=== PATIENT | male | born 1965 | race Caucasian/White ===

== ENCOUNTER 2017-01-27 05:58 | Observation (INO) | payer BC ==
[2016-12-09 09:05] VITALS: BMI 31.0
--- NOTE | 2016-12-09 09:46 | PAT Medication Instructions ---
Service Date Dec 09, 2016. Current Home Medication List Aspirin (Aspirin), 325 MG PO TID PRN for Pain Multivitamin (Multivitamin), 1 TAB PO BID Medication Instructions For Your Scheduled Surgery Aspirin (Aspirin), 325 MG PO TID PRN for Pain (patient will check with surgeon for instructions) - Hold the following medications the morning of surgery: Multivitamin (Multivitamin), 1 TAB PO BID - Take the following medications as scheduled the night before surgery: Multivitamin (Multivitamin), 1 TAB PO BID If you have any questions please call us at [phone] or [phone] ( Kayla) or [phone]
--- NOTE | 2016-12-09 10:40 | DIAGNOSTIC IMAGING REPORT ---
CHEST PREADMISSION(PA/LAT) HISTORY: Preop. COMPARISON: Chest 01/04/2012. FINDINGS: The lungs are clear. Cardiac silhouette is normal in size. No pleural effusions. No pneumothorax. Mild S-shaped scoliosis of the thoracic spine. IMPRESSION: No acute process. Electronically signed by: Mauro Genao M.D. 12/09/2016 10:38 AM Dictated Date/Time: 12/09/2016 10:35 AM
[2016-12-09 10:49] LABS: BASO % 0.6 %; BASO ABS # 0.04 K/uL (0-0.2); COMPLETE YES; EOS % 2.5 %; HEMATOCRIT 45.6 % (42-52); IG% 0.1 %; LYMPH % 27.1 %; LYMPH ABS # 1.85 K/uL (1.2-3.4); MEAN CELL VOLUME 85.4 fL (80-100); MEAN CORPUSCULAR HEMOGLOBIN 29.6 pg (25-34); MEAN CORPUSCULAR HGB CONC 34.6 g/dl (32-36); MEAN PLATELET VOLUME 8.9 fL (7.4-10.4); NEUT % 59.7 %; PLATELET COUNT 328 K/uL (130-400); RED BLOOD COUNT 5.34 M/uL (4.7-6.1); WHITE BLOOD COUNT 6.82 K/uL (4.8-10.8)
[2016-12-09 10:51] LABS: URINE APPEARANCE CLEAR (CLEAR); URINE BILIRUBIN NEG (NEG); URINE COLOR YELLOW; URINE NITRITE NEG (NEG); URINE SPECIFIC GRAVITY 1.012 (1.000-1.030); UROBILINOGEN NEG (NEG)
[2016-12-09 11:02] LABS: MANUAL MICROSCOPIC REQUIRED? NO; REVIEW REQ? NO
[2016-12-09 11:32] LABS: CREATININE 0.96 mg/dl (0.60-1.40)
[2016-12-09 11:33] LABS: CALCIUM 8.7 mg/dl (8.5-10.1); POTASSIUM 4.2 mmol/L (3.5-5.1)
[~2017-01-27] VITALS: Ht 185.4 cm; Wt 107.6 kg
[2017-01-27] VITALS (15 sets, daily range): BP systolic 131–159; BP diastolic 83–102; PULSE 16–107; TEMP 36.5–37.1; O2SAT 92–99; Ht 185.4 cm; Wt 107.6 kg
[~2017-01-27 05:58] MED LIST: ASPI325T45 PO; MULT-506 PO
[2017-01-27] MEDS ORDERED: CEFAZOLIN 2000 MG/60 ML D5W 60 ML IV SCH (06:00)
[2017-01-27] MEDS ORDERED: SCOPOLAMINE 1.5 MG TDSY TD SCH (06:00)
[2017-01-27] MEDS ORDERED: LACTATED RINGER'S 1000ML 1,000 ML IV SCH (06:00)
[2017-01-27] MEDS ORDERED: FENTANYL CITRATE INJ 50 MCG/1 ML 2 ML VIAL IV PRN (06:30)
[2017-01-27] MEDS ORDERED: ONDANSETRON INJ 2 MG/ML 2 ML VIAL IV PRN ×2 (06:30→09:00)
[2017-01-27] MEDS ORDERED: ATROPINE SULFATE 0.1 MG/ML 5ML SYR IV PRN (06:30)
[2017-01-27] MEDS ORDERED: EpHEDrine SULFATE INJ 50 MG/ML AMP IV PRN (06:30)
[2017-01-27] MEDS ORDERED: MIDAZOLAM HCL 1 MG/ML 2ML VIAL ONE (06:36)
[2017-01-27] MEDS ORDERED: FENTANYL CITRATE INJ 50 MCG/1 ML 2 ML VIAL ONE ×2 (06:36→07:56)
[2017-01-27] MEDS ORDERED: BACITRACIN 50000 UNIT VIAL ONE (06:59)
[2017-01-27] MEDS ORDERED: SODIUM CHLORIDE 0.9% PF 50 ML VIAL ONE (06:59)
--- NOTE | 2017-01-27 07:28 | History & Physical Bridge Note ---
H&P Re-Evaluation Bridge Note: I have examined the patient, reviewed the History & Physical and in the interval since the performance of the History & Physical I have noted the following changes of clinical significance: No changes noted
--- NOTE | 2017-01-27 07:33 | History and Physical ---
History & Physical Date January 27, 2017. Chief Complaint neck and arm pain History of Present Illness The patient is a 52 year old male with complaints of Additional History Hepatic Disease: No Endocrine Disorder: No Kidney Disease: No Hypertension: No Heart Disease: No Bleeding Tendencies: No Infectious Diseases: No Allergies Coded Allergies: Acetaminophen (Verified Allergy, Unknown, GI upset , 01/27/17) Oxycodone (Verified Adverse Reaction, Unknown, nausea and vomiting, ) Home Medications Scheduled Multivitamin (Multivitamin), 1 TAB PO BID Scheduled PRN Aspirin (Aspirin), 325 MG PO TID PRN for Pain Physical Examination Skin: warm/dry, no rash Eyes: normal inspection, EOMI, sclerae normal ENT: normal ENT inspection, pharynx normal Head: normocephalic, atraumatic Neck: supple, no adenopathy, trachea midline Respiratory/Chest: lungs clear, normal breath sounds, no respiratory distress Cardiovascular: regular rate, rhythm, no edema, no murmur Abdomen / GI: normal bowel sounds, non tender Back: normal inspection Extremities: normal inspection, normal range of motion Neurologic/Psych: no motor/sensory deficits, alert, normal reflexes, oriented x 3 Diagnosis cervical stenosis Plan of Treatment acdf C5-6
[2017-01-27] MEDS ORDERED: HYDROmorphone INJ 2 MG/ML SYR/VIAL ONE (07:57)
[2017-01-27] MEDS ORDERED: ROCURONIUM BROMIDE 10 MG/ML 5 ML VIAL ONE (08:14)
[2017-01-27] MEDS ORDERED: PROPOFOL IV EMULSION 10 MG/ML 20 ML VIAL IV ONE (08:14)
[2017-01-27] MEDS ORDERED: METOCLOPRAMIDE HCL INJ 5 MG/ML 2 ML VIAL ONE (08:14)
[2017-01-27] MEDS ORDERED: DEXAMETHASONE SOD INJ 4 MG/ML VIAL ONE (08:14)
[2017-01-27] MEDS ORDERED: LIDOCAINE HCL 2% 2 ML VIAL (20MG/ML) ONE (08:14)
[2017-01-27] MEDS ORDERED: ONDANSETRON INJ 2 MG/ML 2 ML VIAL ONE (08:14)
[2017-01-27] MEDS ORDERED: RANITIDINE HCL 25 MG/ML INJ ONE (08:14)
[2017-01-27] MEDS ORDERED: NEOSTIGMINE METHYLSULFATE 1 MG/ML 10ML VIAL ONE (08:14)
[2017-01-27] MEDS ORDERED: GLYCOPYRROLATE INJ 0.2 MG/ML VIAL ONE (08:14)
--- NOTE | 2017-01-27 08:51 | [facility] Post Operative Brief Note ---
Immediate Operative Summary Operative Date January 27, 2017. Pre-Operative Diagnosis Cervical Spinal Stenosis Post-Operative Diagnosis Cervical Spinal Stenosis Procedure(s) Performed acdf Surgeon Dr. Davis Oracle Developer Surgeon(s) CHACORTA Rodriguez Estimated Blood Loss 25 Findings stenosis Specimens none per surgeon
[2017-01-27] MEDS ORDERED: FLOSEAL HEMOSTATIC MATRIX 10ML TOP ONE (08:56)
[2017-01-27] MEDS ORDERED: DiphenhydrAMINE HCL 50 MG/ML VIAL IV PRN (09:00)
[2017-01-27] MEDS ORDERED: DO NOT ADMINISTER PNEUMOCOCCAL VACCINE PRN ×2 (09:00)
[2017-01-27] MEDS ORDERED: LORAZEPAM 0.5 MG TAB PO PRN (09:00)
[2017-01-27] MEDS ORDERED: DEXAMETHASONE INJ 8 MG in SYRINGE 0 ML IV PRN (09:00)
[2017-01-27] MEDS ORDERED: NALOXONE HCL 0.4 MG/1 ML VIAL/CARP IV PRN (09:00)
[2017-01-27] MEDS ORDERED: LORAZEPAM INJ 0.5 MG in SYRINGE 0.75 ML IV PRN (09:00)
[2017-01-27] MEDS ORDERED: MAGNESIUM HYDROXIDE SUSP 30 ML UDC PO PRN (09:00)
[2017-01-27] MEDS ORDERED: RACEPINEPHRINE 2.25% NEBU SOLN 0.5 ML VIAL INH PRN (09:00)
[2017-01-27] MEDS ORDERED: DO NOT ADMINISTER FLU VACCINE PRN ×3 (09:00)
[2017-01-27] MEDS ORDERED: MoRPHine SULFATE 10 MG/ML CARP/VIAL IV PRN (09:15)
--- NOTE | 2017-01-27 09:23 | DIAGNOSTIC IMAGING REPORT ---
Cervical SPINE, INTRAOPERATIVE FLUOROSCOPY HISTORY: ACDF C5-C6. FLUOROSCOPY TIME: 8 seconds. FINDINGS: Intraoperative fluoroscopy was provided for the cervical spine. 2 fluoroscopic spot images were obtained. C5-C6 ACDF. The hardware appears intact. IMPRESSION: Fluoroscopy provided for a C5-C6 ACDF. Electronically signed by: Mauro Genao M.D. 01/27/2017 9:22 AM Dictated Date/Time: 01/27/2017 9:21 AM
--- NOTE | 2017-01-27 09:25 | OPERATIVE REPORT ---
DATE OF OPERATION: 01/27/2017 PREOPERATIVE DIAGNOSIS: Cervical spinal stenosis. POSTOPERATIVE DIAGNOSIS: Same. PROCEDURES PERFORMED: 1. Anterior cervical discectomy, bilateral foraminotomy C5-C6. 2. Anterior cervical arthrodesis, C5-6. 3. Placement of cortical allograft filled with DBM 7 mm in height at C5-C6. 4. Application of Quiñones plate and screws from C5-C6. SURGEON: Dr. Delano Davis. PRODUCT ENGINEERING MANAGER: Mary Ann Anders PA-C. Due to the complex nature of the procedure, the entire surgery was performed with the human resource assistant of Mary Ann Anders PA-C. The office clerk assistant, under direct supervision, was involved in the actual performance of all aspects of the surgical procedure including hemostasis, tissue retraction and incision, instrument management, patient positioning, and wound closure. ANESTHESIA: General. DISPOSITION: The patient awakened and taken to PACU in stable condition. HISTORY OF PATIENT'S PROBLEMS: This is a 52-year-old male well known to me that presents with above-mentioned diagnosis. After failing an extensive course of nonoperative care, elected to undergo the above-mentioned procedure. Risks, benefits, pros, cons, and alternatives were outlined in detail preoperatively. OPERATION AND FINDINGS: PROCEDURE: The patient was met with preoperatively, case discussed and all questions were addressed. At that point the patient was taken back to the operative suite and after undergoing successful general intubation by the anesthesia was placed in supine position on Rex table with head in Parr head trimmer. All bony prominences were well padded and the eyes were inspected to ensure there was no external pressure placed upon them. At this point the anterior cervical spine was prepped and draped in normal sterile fashion. With the assistance of fluoroscopy, we identified the C5-C6 disc space and transverse incision was placed along the right anterior aspect of the cervical spine overlying this region. Sharp dissection with the assistance of bipolar electrocautery performed down to and exposing the anterior cervical spine, C5-C6. We verified our position with fluoroscopy. A complete discectomy was then performed out to the uncovertebral joints bilaterally. Geddes distracting pins were utilized to assist us in our visualization. The endplates were then burred to subcortical bleeding bone and a 7 mm cortical autograft filled with DBM tapped into position. Distracting apparatus was removed. All anterior osteophytes burred to a smooth cortical surface and a Quiñones plate and screws applied with the assistance of fluoroscopy. Incision was then copiously irrigated, explored to ensure there was no damage to surrounding structures or remaining bleeding. A #10 round ALLAN drain inserted then closed with 2-0 Vicryl in the fascia, 4-0 Monocryl for final skin closure. Steri-Strips and sterile dressing placed. The patient was awakened and taken to PACU in stable condition. I attest to the content of the Intraoperative Record and any orders documented therein. Any exceptio ns are noted below.
--- NOTE | 2017-01-27 10:08 | Anesthesiology Progress Note ---
Anesthesia Post Op Note Date & Time January 27, 2017 at 10:08 Vital Signs Pain Intensity: 4 Vital Signs Past 12 Hours Date Time Temp Pulse Resp B/P Pulse Ox O2 Delivery O2 Flow Rate FiO2 01/27/17 09:04 36.3 93 14 133/76 100 Mask 10 01/27/17 06:39 36.6 76 20 148/97 98 Room Air Notes Mental Status: alert / awake / arousable, participated in evaluation Pt Amnestic to Procedure: Yes Nausea / Vomiting: adequately controlled Pain: adequately controlled Airway Patency, RR, SpO2: stable & adequate BP & HR: stable & adequate Hydration State: stable & adequate Anesthetic Complications: no major complications apparent
[2017-01-27] MEDS ORDERED: IV FLUIDS COMPLETED PRN (10:15)
[2017-01-27] MEDS: SODIUM CHLORIDE 0.9% 1000ML 1,000 ML IV SCH ×2 (11:24→23:41)
[2017-01-27] MEDS: HYDROmorphone INJ 1 MG/ML SYR IV PRN ×3 (11:44→21:40)
[2017-01-27] MEDS: DEXAMETHASONE INJ 6 MG in SYRINGE 0 ML IV SCH ×2 (14:34→21:40)
[2017-01-27] MEDS ORDERED: ULT50X PO (15:14)
--- NOTE | 2017-01-27 15:15 | Discharge Instructions ---
Discharge Instructions Date of Service January 27, 2017. Admission Reason for Admission: Cervical Spinal Stenosis Discharge Discharge Diagnosis / Problem: stenosis Discharge Goals Goal(s): Improve function Activity Recommendations Activity Limitations: per Instructions/Follow-up section . Instructions / Follow-Up Instructions / Follow-Up ACTIVITY RECOMMENDATIONS: SELF CARE INSTRUCTIONS AFTER CERVICAL FUSIONS 1. No smoking. Smoking drastically decreases the chance of a solid fusion. 2. No bending, lifting more than 5 pounds, or twisting (roll like a log when turning in bed). 3. You may shower 3 days after surgery. Thoroughly dry wound. Do not soak in the tub. 4. Cervical collar: Must be worn at all times including sleeping. You may remove the brace only to bath, eat and if you are sitting in a recliner. 5. Please walk as much as you can for exercise. Gradually increase the distance that you walk as your endurance increases. SPECIAL CARE INSTRUCTIONS: VERY IMPORTANT TO READ AND REVIEW A. Do not take any anti-inflammatory medications (i.e. Indocin, Advil, Aspirin, Naprosyn, Aleve, Motrin, etc.) as these may inhibit the chance of a solid fusion. Tylenol is okay to take. B. Your surgical incision has been closed with a cosmetic suture under the skin that will dissolve in about 6 weeks. In 14 days, you can use a pair of clean scissors and cut the suture that is left outside of the skin at the ends of your incision. C. Complications are uncommon, but please contact us if you have any signs or symptoms of: 1. wound infection (fever higher than 102.5 degrees F, redness, separation of wound, drainage, or increasing pain from the incision) 2. blood clots in legs (pain, swelling, redness and warmth in legs) 3. urinary tract infection (fever higher than 102.5 degrees, burning upon urination or increased frequency of urination) 4. nerve problems (inability to walk on your toes or heels, numbness, loss of bowel or bladder control) 5. any other symptoms that concern you. D. Please call the office at if you have any concerns or questions about your operation or recovery. MANAGING PAIN AFTER SPINAL SURGERY 1. Narcotic medication is intended for short-term use and will be provided for surgical pain. Surgical pain usually lasts for a period of 4-6 weeks. Narcotic medication includes Percocet, Vicodin, Darvocet, Tylenol #3 or Lortab. 2. Longer-term pain is more appropriately treated with non-narcotic medication such as Tylenol ES. 3. Muscle spasm is not appropriately treated with narcotics. Muscle relaxers such as Soma, Flexeril or Skelaxin can be used along with Tylenol ES. 4. Remember that we all live with some "aches and pains". This is not unusual or uncommon after an injury or as we get older. 5. We will provide appropriate medication within the normal guidelines of their prescribed use. We will also be very cautious and aware of potential abuse and extended duration of patients' medication needs. 6. Please allow 2-3 days to process refills. Prescriptions will not be mailed but must be picked up at the office. FOLLOW UP VISIT: Keep your scheduled follow-up appointment. Any questions, please call the office at . Current Hospital Diet Patient's current hospital diet: Clear Liquid Diet Discharge Diet Recommended Diet: Regular Diet Procedures Procedures Performed: C5-C6 Anterior Cervical Disectomy, Placement of Prosthetic Spacer; Application of Allograft, Anterior Plate and Screw Fixation Pending Studies Studies pending at discharge: no Medical Emergencies . Who to Call and When: Medical Emergencies: If at any time you feel your situation is an emergency, please call 911 immediately. . Non-Emergent Contact Non-Emergency issues call your: Primary Care Provider . "Provider Documentation" section prepared by Delano Davis. . VTE Core Measure Inpt VTE Proph given/why not?: Froilan Buckley, JANETTE's
[2017-01-27] MEDS: CHECK SCOPOLAMINE PATCH PLACEMENT SCH ×2 (15:46→23:41)
[2017-01-27] MEDS: CEFAZOLIN IV 2,000 MG in DEXTROSE 5% 50ML 50 ML IV SCH ×2 (15:46→23:41)
[2017-01-27] MEDS: DOCUSATE SODIUM 100 MG CAP PO SCH (20:55)
[2017-01-27] MEDS: TRAMADOL HCL 50 MG TAB PO PRN (23:49)
[2017-01-28] VITALS (10 sets, daily range): BP systolic 124–139; BP diastolic 75–87; PULSE 72–92; TEMP 36.4–37.1; O2SAT 94–97
[2017-01-28] MEDS: HYDROmorphone INJ 1 MG/ML SYR IV PRN ×2 (03:57→11:11)
[2017-01-28] MEDS: DEXAMETHASONE INJ 6 MG in SYRINGE 0 ML IV SCH (05:39)
[2017-01-28] MEDS: CHECK SCOPOLAMINE PATCH PLACEMENT SCH (07:46)
[2017-01-28] MEDS: DOCUSATE SODIUM 100 MG CAP PO SCH (07:47)
[2017-01-28] MEDS: CEFAZOLIN IV 2,000 MG in DEXTROSE 5% 50ML 50 ML IV SCH (07:47)
[2017-01-28] MEDS: TRAMADOL HCL 50 MG TAB PO PRN (07:51)
--- NOTE | 2017-01-28 08:17 | Anesthesiology Progress Note ---
Anesthesia Post Op Note Date & Time January 28, 2017 at 08:17 Vital Signs Pain Intensity: 4.0 Vital Signs Past 12 Hours Date Time Temp Pulse Resp B/P Pulse Ox O2 Delivery O2 Flow Rate FiO2 01/28/17 07:50 74 14 96 Room Air 01/28/17 07:40 36.7 72 16 128/83 96 Room Air 01/28/17 07:40 Room Air 01/28/17 05:40 36.5 80 17 131/75 94 Nasal Cannula 2.0 Humidified Oxygen 01/28/17 03:40 36.5 76 18 138/80 96 Nasal Cannula 2.0 01/28/17 03:25 82 14 97 Nasal Cannula 2.0 01/28/17 01:40 36.4 92 18 139/87 97 Nasal Cannula 2.0 Humidified Oxygen 01/27/17 23:40 36.7 84 18 146/96 97 Nasal Cannula 2.0 01/27/17 23:38 Nasal Cannula 2.0 Humidified Oxygen 01/27/17 23:28 83 14 95 Nasal Cannula 2.0 01/27/17 21:45 36.7 94 16 135/83 96 Humidified Air 2.0 Notes Mental Status: alert / awake / arousable, participated in evaluation Pt Amnestic to Procedure: Yes Nausea / Vomiting: adequately controlled Pain: adequately controlled Airway Patency, RR, SpO2: stable & adequate BP & HR: stable & adequate Hydration State: stable & adequate Anesthetic Complications: no major complications apparent
[2017-01-29] MEDS ORDERED: BISACODYL 5 MG TABEC PO PRN (06:00)
[2017-01-29] MEDS ORDERED: BISACODYL 10 MG SUPP PR PRN (06:00)
--- NOTE | 2017-01-29 08:43 | DISCHARGE SUMMARY ---
PRINCIPAL DIAGNOSIS: Cervical spinal stenosis. HOSPITAL COURSE FOLLOWS: On 01/27/2017 the patient underwent anterior cervical discectomy and fusion C5-C6, tolerated this well and taken to the orthopedic floor postoperatively. Postop day #1, he was up and ambulatory, swallowing well, no hoarseness. ALLAN drain decreased appropriately, subsequently discharged home. Discharge orders and instructions can be found on the chart for further review.
[2017-01-29] MEDS ORDERED: POLYETHYLENE (MIRALAX) 17 GM PACK PO SCH (09:00)
[2017-01-30] MEDS ORDERED: SCOPOLAMINE 1.5 MG TDSY TD SCH (06:00)
[2017-01-30] MEDS ORDERED: CHECK SCOPOLAMINE PATCH PLACEMENT SCH (08:00)
== END 2017-01-28 11:30 | disposition home or self-care (01) ==
LOC: ENRESERVTM → ENRESERVDT → C.ACU 05:58 → C.3E 08:54
PROVIDERS: ADMIT Orthopaedic Surgery Orthopaedic Surgery of the Spine; ATTEND Orthopaedic Surgery Orthopaedic Surgery of the Spine
DX: M48.02 Spinal stenosis, cervical region (principal)

== ENCOUNTER 2017-09-16 09:16 | Inpatient (IN) | payer BC ==
[2017-08-23 11:09] VITALS: BMI 32.0
--- NOTE | 2017-08-23 11:38 | PAT Medication Instructions ---
Service Date Aug 23, 2017. Current Home Medication List Aspirin (Aspirin), 650 MG PO BID Ibuprofen (Advil), 400 MG PO PRN Lisinopril (Prinivil), 10 MG PO QAM Lorazepam (Ativan), 1 MG PO HS Medication Instructions For Your Scheduled Surgery - Check with surgeon for instructions: Ibuprofen (Advil), 400 MG PO PRN Aspirin (Aspirin), 650 MG PO BID - Hold the following medications the morning of surgery: Lisinopril (Prinivil), 10 MG PO QAM - Take the following medications as scheduled the night before surgery: Lorazepam (Ativan), 1 MG PO HS If you have any questions please call us at [phone] or [phone] or [phone]
[2017-08-23 12:14] LABS: BASO % 0.5 %; BASO ABS # 0.04 K/uL (0-0.2); EOS % 4.1 %; EOS ABS # 0.31 K/uL (0-0.5); HEMATOCRIT 45.3 % (42-52); HEMOGLOBIN 15.4 g/dL (14.0-18.0); IG# 0.02 K/uL (0.00-0.02); LYMPH % 28.1 %; MEAN CELL VOLUME 87.1 fL (80-100); MEAN CORPUSCULAR HEMOGLOBIN 29.6 pg (25-34); MEAN PLATELET VOLUME 8.8 fL (7.4-10.4); MONO % 8.3 %; MONO ABS # 0.62 K/uL (0.11-0.59); NEUT % 58.7 %; NEUT ABS # 4.38 K/uL (1.4-6.5); PLATELET COUNT 334 K/uL (130-400); RED CELL DISTRIBUTION WIDTH CV 12.8 % (11.5-14.5); RED CELL DISTRIBUTION WIDTH SD 41.3 fL (36.4-46.3); WHITE BLOOD COUNT 7.47 K/uL (4.8-10.8)
[2017-08-23 12:56] LABS: CALCIUM 8.8 mg/dl (8.5-10.1); CREATININE 0.84 mg/dl (0.60-1.40); POTASSIUM 4.3 mmol/L (3.5-5.1)
[2017-09-16] VITALS (7 sets, daily range): BP systolic 109–145; BP diastolic 72–100; PULSE 79–102; TEMP 36.4–37.1; O2SAT 90–99; Ht 182.9 cm; Wt 108.5 kg
[~2017-09-16] VITALS: Ht 182.9 cm; Wt 108.5 kg
[~2017-09-16 09:16] MED LIST changes: +ATV/1 PO; +CEFAZOLIN 2000MG IV PUSH 10 ML IV SCH; +IBUP-1050 PO; +LACTATED RINGER'S 1000ML 1,000 ML IV SCH; +LISI10TA PO; -MULT-506 PO
[2017-09-16] MEDS ORDERED: SCOPOLAMINE 1.5 MG TDSY TD ONE ×2 (10:35→10:45)
[2017-09-16] MEDS ORDERED: LABETALOL HCL IV 5 MG/ML 20ML IV PRN (10:45)
[2017-09-16] MEDS ORDERED: ATROPINE SULFATE 0.1 MG/ML 5ML SYR IV PRN (10:45)
[2017-09-16] MEDS ORDERED: PROMETHAZINE HCL INJ 12.5 MG in SODIUM CHLORIDE 0.9% 50ML 50 ML IV PRN ×2 (10:45→14:45)
[2017-09-16] MEDS ORDERED: ONDANSETRON INJ 2 MG/ML 2 ML VIAL IV PRN ×2 (10:45→14:45)
[2017-09-16] MEDS ORDERED: PROPOFOL IV EMULSION 10 MG/ML 20 ML VIAL IV ONE (11:00)
[2017-09-16] MEDS ORDERED: GLYCOPYRROLATE INJ 0.2 MG/ML VIAL ONE (11:00)
[2017-09-16] MEDS ORDERED: ONDANSETRON INJ 2 MG/ML 2 ML VIAL ONE ×2 (11:00→14:03)
[2017-09-16] MEDS ORDERED: NEOSTIGMINE METHYLSULFATE 1 MG/ML 10ML VIAL ONE (11:00)
[2017-09-16] MEDS ORDERED: DEXAMETHASONE SOD INJ 4 MG/ML VIAL ONE (11:00)
[2017-09-16] MEDS ORDERED: LIDOCAINE HCL 2% 2 ML VIAL (20MG/ML) ONE (11:00)
[2017-09-16] MEDS ORDERED: FENTANYL CITRATE INJ 50 MCG/1 ML 2 ML VIAL ONE ×2 (11:01)
[2017-09-16] MEDS ORDERED: MIDAZOLAM HCL 1 MG/ML 2ML VIAL ONE (11:01)
--- NOTE | 2017-09-16 11:45 | History and Physical ---
History & Physical Date Sep 16, 2017. Chief Complaint Back and leg pain History of Present Illness The patient is a 52 year old male with complaints of back and leg pain Past Medical/Surgical History Medical Problems: (1) Cervical stenosis of spinal canal Additional History Hepatic Disease: No Endocrine Disorder: No Kidney Disease: No Hypertension: Yes Heart Disease: No Bleeding Tendencies: No Infectious Diseases: No Allergies Coded Allergies: Acetaminophen (Verified Adverse Reaction, Mild, GI upset , 09/16/17) Codeine (Verified Adverse Reaction, Mild, nausea and vomiting, 09/16/17) Oxycodone (Verified Adverse Reaction, Mild, nausea and vomiting, 09/16/17) Home Medications Scheduled Aspirin (Aspirin), 650 MG PO BID Ibuprofen (Advil), 400 MG PO PRN Lisinopril (Prinivil), 10 MG PO QAM Lorazepam (Ativan), 1 MG PO HS Physical Examination Skin: warm/dry, no rash Eyes: normal inspection, EOMI, sclerae normal ENT: normal ENT inspection, pharynx normal Head: normocephalic, atraumatic Neck: supple, no adenopathy, trachea midline Respiratory/Chest: lungs clear, normal breath sounds, no respiratory distress Cardiovascular: regular rate, rhythm, no edema, no murmur Abdomen / GI: normal bowel sounds, non tender Back: normal inspection Extremities: normal inspection, normal range of motion Neurologic/Psych: no motor/sensory deficits, alert, normal reflexes, oriented x 3 Diagnosis Lumbar spinal stenosis Plan of Treatment Removal of the hardware L4 5 lumbar decompression and fusion L3 4
[2017-09-16] MEDS ORDERED: BACITRACIN 50000 UNIT VIAL ONE (12:06)
[2017-09-16] MEDS ORDERED: BUPIVACAINE/EPINEPHRINE 0.25% 1:200,000 30 ML VIAL ONE (12:06)
[2017-09-16] MEDS ORDERED: HYDROmorphone INJ 2 MG/ML SYR/VIAL ONE (12:36)
[2017-09-16] MEDS ORDERED: ROCURONIUM BROMIDE 10 MG/ML 5 ML VIAL IV ONE ×4 (12:40→14:11)
[2017-09-16] MEDS ORDERED: ALBUMIN HUMAN 5% 12.5 GM/250 ML VIAL IV ONE (14:04)
[2017-09-16] MEDS ORDERED: FLOSEAL HEMOSTATIC MATRIX 10ML TOP ONE (14:07)
[2017-09-16] MEDS: LACTATED RINGER'S 1000ML 1,000 ML IV SCH ×2 (14:33→21:24)
[2017-09-16] MEDS ORDERED: SODIUM CHLORIDE 0.9% 1000ML 1,000 ML IV SCH (14:33)
--- NOTE | 2017-09-16 14:33 | [facility] Operative Report ---
Operative Report Operative Date Sep 16, 2017. Pre-Operative Diagnosis Lumbar spinal stenosis Post-Operative Diagnosis same as preop Procedure(s) Performed #1 removal of posterior inch rotation L4 5. #2 expiration of fusion L4 5. #3 lumbar decompression medial facetectomies foraminotomies L3 4. #4 posterior spinal fusion L3 4. #5 placement posterior transportation L3 4 L4 5. #6 interbody fusion L3 4. #7 placement peek Cage 14 x 26 mm at L3 4. #8 placement locally harvested morcellized autograft posterior gutters. #9 placement infuse collagen sponge by mask graft in the posterior gutters and ostial amp in the interbody space. Surgeon Dr. Davis Global Marketing Operations Manager Surgeon(s) Finn Wills PA-C Estimated Blood Loss 800 ML Findings Severe spinal stenosis Specimens A: L4-L5 Removed hardware Description of Procedure Patient was met with preoperatively case discussed all questions addressed. After informed consent obtained patient was taken to the operative suite underwent intubation placed in a prone position on the Rex table on top of the Selvin frame. All bony promises well-padded eyes inspected to ensure no external pressure placed upon them. This point the lumbar spine was prepped and draped in the normal sterile fashion. Sharp dissection with the assistance of Bovie cautery was performed onto an exposing the lamina and transverse processes of L3 and instrumentation at the L4 and L5 levels bilaterally. I then proceeded remove the hardware bilaterally 45 explored the fusion mass noting it to be intact. Then performed a complete laminectomy of L3 including medial facetectomies foraminotomies addressing severe lateral recess stenosis. Pedicle screws are then placed in L3 L4-L5 bilaterally with assistance of fluoroscopy the purposes ximena placed. Through a transverse foraminal approach on the right a complete discectomy was performed and plate created to subcortical bleeding bone and a 14 x 26 mm peek cage filled with ostial amp bone graft tapped in position. The rods and compressed locked and final position bilaterally the transverse processes of L3 4 burred to subcortical bleeding bone. Infuse collagen sponge mask graft locally harvested morcellized autograft placed posterior gutters. 15 round ALLAN drain inserted. Incision then closed with 1 Vicryl fascia 2-0 Vicryl subcutaneous tediously 4 Monocryl for final skin closure Steri-Strips sterile dressings placed. Patient we can taken to PACU stable condition. Please note Vijay Wills present at the entire procedure involved in patient positioning complex portions of the surgery and final skin closure. I attest to the content of the Intraoperative Record and any orders documented therein. Any exceptions are noted below.
[2017-09-16] MEDS ORDERED: HYDROmorphone HCL 0.5MG/ML 50 ML CASSETTE ONE (14:42)
[2017-09-16] MEDS ORDERED: hydrOXYzine HCL 25 MG TAB PO PRN (14:45)
[2017-09-16] MEDS ORDERED: LORAZEPAM INJ 0.5 MG in SYRINGE 0.75 ML IV PRN (14:45)
[2017-09-16] MEDS ORDERED: LORAZEPAM 0.5 MG TAB PO PRN (14:45)
[2017-09-16] MEDS ORDERED: FAMOTIDINE 20 MG TAB PO PRN (14:45)
[2017-09-16] MEDS ORDERED: SOD PHOSPHATE/SOD BIPHOSPHATE ENEMA 132 ML BTL PR PRN ×2 (14:45)
[2017-09-16] MEDS ORDERED: METOCLOPRAMIDE HCL INJ 5 MG/ML 2 ML VIAL IV PRN (14:45)
[2017-09-16] MEDS ORDERED: BISACODYL 10 MG SUPP PR PRN ×2 (14:45)
[2017-09-16] MEDS ORDERED: TRAMADOL HCL 50 MG TAB PO PRN (14:45)
[2017-09-16] MEDS ORDERED: DO NOT ADMINISTER FLU VACCINE PRN (14:45)
[2017-09-16] MEDS ORDERED: MAGNESIUM HYDROXIDE SUSP 30 ML UDC PO PRN ×2 (14:45)
[2017-09-16] MEDS ORDERED: ALUMINUM/MAGNESIUM SUSP 30 ML UDC PO PRN (14:45)
[2017-09-16] MEDS ORDERED: DO NOT ADMINISTER PNEUMOCOCCAL VACCINE PRN (14:45)
[2017-09-16] MEDS ORDERED: CEFAZOLIN IV 2,000 MG in DEXTROSE 5% 50ML 50 ML IV SCH (14:45)
[2017-09-16] MEDS ORDERED: NALOXONE HCL 0.4 MG/1 ML VIAL/CARP IV PRN ×3 (14:45)
--- NOTE | 2017-09-16 14:46 | DIAGNOSTIC IMAGING REPORT ---
LUMBAR SPINE 2 OR 3 VIEW CLINICAL HISTORY: L4-L5 REMOVAL OF HARDWARE/ L3-4 POSSIBLE L5-S1 COMPARISON STUDY: Lumbar spine fluoroscopic images February 04, 2012. Fluoroscopy time: 7 seconds. FINDINGS: 3 fluoroscopic images were obtained. These images demonstrate a previous L4-L5 discectomy with interbody spacer placement. There has been an interval L3-L4 discectomy with interbody spacer placement. The posterior decompression is noted. There are bilateral pedicle screws at the L3, L4 and L5 levels with interconnecting rods. Hardware is intact. IMPRESSION: Fluoroscopic images demonstrating an interval L3-L4 discectomy and L3-L5 bilateral pedicle screw fusion. Electronically signed by: Drew Campbell M.D. 09/16/2017 2:45 PM Dictated Date/Time: 09/16/2017 2:44 PM
[2017-09-16] MEDS: HYDROmorphone INJ 2 MG/ML SYR/VIAL IV PRN ×8 (14:55→15:31)
--- NOTE | 2017-09-16 15:29 | Anesthesiology Progress Note ---
Anesthesia Post Op Note Date & Time Sep 16, 2017 at 15:29 Vital Signs Pain Intensity: 5.0 Vital Signs Past 12 Hours Date Time Temp Pulse Resp B/P (MAP) Pulse Ox O2 Delivery O2 Flow Rate FiO2 09/16/17 15:10 76 13 09/16/17 15:10 76 13 126/70 99 09/16/17 15:05 78 12 122/68 100 09/16/17 15:05 79 12 09/16/17 15:00 78 11 09/16/17 15:00 78 11 110/79 100 09/16/17 14:55 73 10 122/72 100 09/16/17 14:55 73 10 09/16/17 14:50 75 12 09/16/17 14:50 75 12 123/75 100 09/16/17 14:45 77 14 124/72 100 09/16/17 14:45 77 14 09/16/17 14:40 36.3 86 16 143/82 100 Oxymask 10 09/16/17 14:40 84 143/82 100 09/16/17 14:40 84 09/16/17 09:30 36.4 79 20 145/100 99 Room Air Notes Mental Status: alert / awake / arousable, participated in evaluation Pt Amnestic to Procedure: Yes Nausea / Vomiting: adequately controlled Pain: adequately controlled Airway Patency, RR, SpO2: stable & adequate BP & HR: stable & adequate Hydration State: stable & adequate Anesthetic Complications: no major complications apparent
[2017-09-16] MEDS: CHECK SCOPOLAMINE PATCH PLACEMENT SCH ×2 (16:17→23:55)
[2017-09-16] MEDS: HYDROmorphone HCL 0.5MG/ML 50 ML CASSETTE IV PRN ×2 (19:22→22:59)
[2017-09-16] MEDS ORDERED: ASPIRIN 325 MG ECTAB PO SCH (21:00)
[2017-09-16] MEDS ORDERED: DOCUSATE SODIUM/SENNA 50/8.6MG TAB PO SCH (21:00)
[2017-09-16] MEDS: DOCUSATE SODIUM/SENNA 50/8.6MG TAB PO SCH (21:23)
[2017-09-16] MEDS: CEFAZOLIN IV 2,000 MG in SYRINGE 0 ML IV SCH (21:41)
[2017-09-16] MEDS: LORAZEPAM 1 MG TAB PO SCH (23:58)
[2017-09-17] MEDS: LACTATED RINGER'S 1000ML 1,000 ML IV SCH (03:43)
[2017-09-17] MEDS: CEFAZOLIN IV 2,000 MG in SYRINGE 0 ML IV SCH (03:43)
[2017-09-17 04:00] VITALS: BP 114/61; PULSE 105; TEMP 37.1; O2SAT 90
[2017-09-17] MEDS ORDERED: HYDROmorphone INJ 0.5 MG/0.5 ML SYR IV PRN (06:00)
[2017-09-17] MEDS ORDERED: DC PCA SCH (06:00)
[2017-09-17] MEDS ORDERED: NURSING DECISION MEDICATION ORDER SCH (06:45)
[2017-09-17 07:14] LABS: BASO % 0.2 %; BASO ABS # 0.02 K/uL (0-0.2); HEMATOCRIT 33.9 % (42-52); HEMOGLOBIN 11.5 g/dL (14.0-18.0); IG# 0.04 K/uL (0.00-0.02); LYMPH % 12.8 %; LYMPH ABS # 1.66 K/uL (1.2-3.4); MEAN CELL VOLUME 88.1 fL (80-100); MEAN CORPUSCULAR HEMOGLOBIN 29.9 pg (25-34); MEAN CORPUSCULAR HGB CONC 33.9 g/dl (32-36); MEAN PLATELET VOLUME 8.6 fL (7.4-10.4); MONO % 13.8 %; MONO ABS # 1.79 K/uL (0.11-0.59); NEUT % 72.9 %; NEUT ABS # 9.44 K/uL (1.4-6.5); PLATELET COUNT 269 K/uL (130-400); RED CELL DISTRIBUTION WIDTH CV 12.9 % (11.5-14.5); WHITE BLOOD COUNT 12.95 K/uL (4.8-10.8)
[2017-09-17 07:34] VITALS: BP 123/75; PULSE 118; TEMP 37
[2017-09-17 07:42] LABS: CALCIUM 8.1 mg/dl (8.5-10.1); CREATININE 1.05 mg/dl (0.60-1.40); POTASSIUM 4.2 mmol/L (3.5-5.1)
[2017-09-17] MEDS: CHECK SCOPOLAMINE PATCH PLACEMENT SCH ×3 (08:00→23:09)
[2017-09-17] MEDS: OXYCODONE HCL IR 5 MG TAB (IMMEDIATE RELEASE) PO PRN ×4 (08:49→20:25)
[2017-09-17] MEDS: LISINOPRIL 10 MG TAB PO SCH (08:50)
[2017-09-17] MEDS ORDERED: NURSING VERBAL MED ORDER ONE (11:30)
[2017-09-17 12:39] VITALS: BP 125/73; PULSE 105; TEMP 36.3; O2SAT 99
[2017-09-17] MEDS ORDERED: ULT50X PO (13:07)
--- NOTE | 2017-09-17 13:08 | Discharge Instructions ---
Discharge Instructions Date of Service Sep 17, 2017. Admission Reason for Admission: Lumbar Spinal Stenosis Discharge Discharge Diagnosis / Problem: lumbar stenosis Discharge Goals Goal(s): Improve function Activity Recommendations Activity Limitations: per Instructions/Follow-up section . Instructions / Follow-Up Instructions / Follow-Up ACTIVITY RECOMMENDATIONS: SELF CARE INSTRUCTIONS AFTER THORACIC/LUMBAR FUSIONS 1. You may walk to your tolerance. It is good exercise for your legs and back. Expect some back and intermittent leg aches and pains. 2. You may perform "counter-top" level activities (make a sandwich, luz with a project, etc.). 3. No bending or lifting of more than 10 pounds or back twisting of any nature (roll like a log when turning in bed). 4. You may ride in a car for 20-30 minutes at a time. No driving until after your first visit with your doctor. 5. Frequent changes of position and restricting sitting to 30 minutes at a time will help limit the amount of back spasms and stiffness you may experience. 6. You may discontinue the use of ambulatory aids (cane, crutches, etc.) once your strength and confidence allow. 7. You may advertising account representative the shower and let water strike your incision when you arrive home at least once daily. Do not take a tub bath, sit in a hot tub or go into a swimming pool until after your first recheck in the office. SPECIAL CARE INSTRUCTIONS: VERY IMPORTANT TO READ AND REVIEW A. Your surgical incision has been closed with a cosmetic suture under the skin that will dissolve in about 6 weeks. In 14 days, you can use a pair of clean scissors and cut the suture that is left outside of the skin at the ends of your incision. 1. The small skin tapes can be removed 7 days after surgery if they have not fallen off by that point. 2. You may keep the wound open to air as much as possible to promote healing after post-op day number 5 unless told otherwise by your doctor. 3. If you think the wound looks like it is becoming infected (redness or worsening drainage) and/or you are experiencing fever, chill or worsening back pain and muscle spasms, contact the office so that we may evaluate you as soon as possible. B. Complications are uncommon, but please contact us if you have any signs or symptoms of: 1. wound infection (fever higher than 102.5 degrees F, redness, separation of wound, drainage, or increasing pain from the incision) 2. blood clots in legs (pain, swelling, redness and warmth in legs) 3. urinary tract infection (fever higher than 102.5 degrees F, burning upon urination or increased frequency of urination) 4. nerve problems (inability to walk on your toes or heels, numbness, loss of bowel or bladder control) 5. any other symptoms that concern you C. Please call the office at if you have any concerns or questions about your operation or recovery. D. No smoking! Smoking drastically decreases the chance of a solid fusion. E. Do not take any anti-inflammatory medications (Indocin, Advil, Motrin, Aspirin, Naprosyn, etc.) as these may inhibit the chance of a solid fusion. Tylenol is okay to take for pain. MANAGING PAIN AFTER SPINAL SURGERY 1. Narcotic medication is intended for short-term use and will be provided for surgical pain. Surgical pain usually lasts for a period of 4-6 weeks. Narcotic medication includes Percocet, Vicodin, Darvocet, Tylenol #3 or Lortab. 2. Longer-term pain is more appropriately treated with non-narcotic medication such as Tylenol ES. 3. Muscle spasm is not appropriately treated with narcotics. Muscle relaxers such as Soma, Flexeril or Skelaxin can be used along with Tylenol ES. 4. Remember that we all live with some "aches and pains". This is not unusual or uncommon after an injury or as we get older. a. Back pain is expected and may include muscle spasms for 4 to 6 weeks after surgery. The pain should gradually improve. If the pain worsens for no apparent reason, please contact the office. b. Intermittent leg pain may also be experienced and should not be concerned about unless it worsens for no apparent reason. If so, please contact the office. 5. We will provide appropriate medication within the normal guidelines of their prescribed use. We will also be very cautious and aware of potential abuse and extended duration of patients' medication needs. a. Pain medications are for your comfort and to assist with sleep and rest so that the tissue can heal. They are not provided in order to return to normal activity and should not be used through the day. To do so or worsening pain at night can result from ongoing tissue damage and development of tolerance to the prescribed medicine. 6. Please allow 2-3 days to process refills. Prescriptions will not be mailed but must be picked up at the office. FOLLOW UP VISIT: Keep your scheduled follow-up appointment. Any questions, please call the office at . Current Hospital Diet Patient's current hospital diet: Regular Diet Discharge Diet Recommended Diet: Regular Diet Procedures Procedures Performed: #1 removal of posterior inch rotation L4 5. #2 expiration of fusion L4 5. #3 lumbar decompression medial facetectomies foraminotomies L3 4. #4 posterior spinal fusion L3 4. #5 placement posterior transportation L3 4 L4 5. #6 interbody fusion L3 4. #7 placement peek Cage 14 x 26 mm at L3 4. #8 placement locally harvested morcellized autograft posterior gutters. #9 placement infuse collagen sponge by mask graft in the posterior gutters and ostial amp in the interbody space. Pending Studies Studies pending at discharge: no Medical Emergencies . Who to Call and When: Medical Emergencies: If at any time you feel your situation is an emergency, please call 911 immediately. . Non-Emergent Contact Non-Emergency issues call your: Primary Care Provider . "Provider Documentation" section prepared by Delano Davis. . VTE Core Measure Inpt VTE Proph given/why not?: Froilan Buckley, SCD's
--- NOTE | 2017-09-17 13:54 | Progress Note ---
Progress Note Date of Service Sep 17, 2017. Progress Note Patient's back pain is controlled. States his leg pain is markedly improved. On exam he is sitting in chair at bedside as good strength testing appears comfortable. Assessment status post lumbar decompression fusion replant this time will continue physical therapy monitor is ALLAN output. We anticipate discharge home Tuesday.
[2017-09-17 15:09] VITALS: BP 100/56; PULSE 100; TEMP 37.1; O2SAT 93
[2017-09-17] MEDS: DOCUSATE SODIUM/SENNA 50/8.6MG TAB PO SCH (20:28)
[2017-09-17] MEDS: LORAZEPAM 1 MG TAB PO SCH (20:30)
[2017-09-17 22:55] VITALS: BP 118/65; PULSE 103; TEMP 37; O2SAT 95
[2017-09-18] MEDS: OXYCODONE HCL IR 5 MG TAB (IMMEDIATE RELEASE) PO PRN ×2 (05:55→17:50)
[2017-09-18] MEDS: POLYETHYLENE (MIRALAX) 17 GM PACK PO SCH ×3 (05:58→18:00)
[2017-09-18] MEDS ORDERED: POLYETHYLENE (MIRALAX) 17 GM PACK PO SCH (06:00)
[2017-09-18 06:56] VITALS: BP 109/67; PULSE 101; TEMP 37.4; O2SAT 94
[2017-09-18] MEDS: KETOROLAC TROMETHAMINE 30 MG/ML VIAL IV PRN ×3 (07:11→22:34)
[2017-09-18] MEDS: CHECK SCOPOLAMINE PATCH PLACEMENT SCH ×3 (08:00→23:00)
[2017-09-18] MEDS ORDERED: MAGNESIUM CITRATE 296 ML/BTL PO PRN (08:30)
[2017-09-18] MEDS: LISINOPRIL 10 MG TAB PO SCH (09:17)
[2017-09-18 14:58] VITALS: BP 99/63; PULSE 93; TEMP 36.9; O2SAT 97
[2017-09-18] MEDS: DOCUSATE SODIUM/SENNA 50/8.6MG TAB PO SCH (22:33)
[2017-09-18] MEDS: LORAZEPAM 1 MG TAB PO SCH (22:34)
[2017-09-18] MEDS ORDERED: NURSING VERBAL MED ORDER ONE (23:00)
[2017-09-18 23:10] VITALS: BP 116/78; PULSE 99; TEMP 37.2; O2SAT 96
[2017-09-19 06:47] VITALS: BP 115/75; PULSE 90; TEMP 37; O2SAT 95
[2017-09-19] MEDS: OXYCODONE HCL IR 5 MG TAB (IMMEDIATE RELEASE) PO PRN (07:15)
[2017-09-19] MEDS: LISINOPRIL 10 MG TAB PO SCH (07:16)
[2017-09-19 07:48] VITALS: BP 115/75; PULSE 90; TEMP 37; O2SAT 95
--- NOTE | 2017-09-19 08:00 | ORTHOPEDIC PROGRESS NOTE ---
DATE: 09/18/2017 SUBJECTIVE: He is postoperative day 2 removal of instrumentation L4-L5 with instrumented fusion L3-L4. He is doing well. The biggest complaint is back pain when he changes positions from a seated to a standing position. He also is noting some abdominal discomfort. Passing modest flatus, no bowel movement yet. ALLAN drain output last shift was 90 mL. This is a total of 315 mL over the past 24 hours. Yesterday in physical therapy, he was ambulating over 400 feet. He has no radicular leg pain. PHYSICAL EXAMINATION: VITAL SIGNS: Stable. GENERAL: He is ambulating with a walker in the hallways when I interviewed him. No obvious distress. Lumbar dressing is clean, dry, and intact. LOWER EXTREMITIES: Neurovascularly intact. ASSESSMENT: Postoperative day 2 removal of instrumentation L4-L5 with lumbar decompression instrumented fusion L3-L4. PLAN: At this point, we will maintain ALLAN drain and dressing. We will continue with aggressive bowel regimen. DVT prophylaxis is in the form of TEDs and SCDs. We will continue with ambulation. We anticipate discharge home tomorrow.
--- NOTE | 2017-09-19 08:05 | Anesthesiology Progress Note ---
Anesthesia Post Op Note Date & Time Sep 19, 2017 at 08:04 Vital Signs Vital Signs Past 12 Hours Date Time Temp Pulse Resp B/P (MAP) Pulse Ox O2 Delivery O2 Flow Rate FiO2 09/19/17 07:48 37.0 90 16 95 Room Air 09/19/17 07:20 Room Air 09/19/17 06:47 37.0 90 16 115/75 (88) 95 Room Air 09/18/17 23:56 Room Air 09/18/17 23:10 37.2 99 16 116/78 (91) 96 Room Air Notes Mental Status: alert / awake / arousable, participated in evaluation Pt Amnestic to Procedure: Yes Nausea / Vomiting: adequately controlled Pain: adequately controlled Airway Patency, RR, SpO2: stable & adequate BP & HR: stable & adequate Hydration State: stable & adequate Anesthetic Complications: no major complications apparent
[2017-09-19] MEDS ORDERED: RXC5 PO (09:37)
[2017-09-19] MEDS ORDERED: SCOPOLAMINE 1.5 MG TDSY TD SCH (09:45)
[2017-09-19] MEDS: KETOROLAC TROMETHAMINE 30 MG/ML VIAL IV PRN (09:49)
--- NOTE | 2017-09-19 10:30 | Clinical Documentation Query ---
JORDY Barnes : CLINICAL DOCUMENTATION QUERY Patient is a 52 year old male admitted to undergo elective posterior lumbar decompression and interbody fusion. Preoperative H&H ws 15.4 g/dl and 45.3%. POD #1, repeat values are 11.5 g/dl and 33.9%. EBL for the procedure 800 ml's with a subsequent total of an additional 840 ml's to date. He is being monitored with serial hematology and I/O including drain outputs. As appropriate, consider documentation as suggested below. In your clinical opinion is this patient being managed for: ( ) Acute blood loss anemia ( ) Not Agree ( ) Other explanation of clinical findings (Please Explain) ( ) Unable to determine (Please Define) ( ) Need to Discuss The medical record reflects the following clinical findings, treatment, and risk factors. Clinical Indicators: As above Treatment: He is being monitored with serial hematology Risk Factors: Acute blood loss associated with surgery Please clarify and document your clinical opinion in the progress notes and discharge summary. Terms such as "probable", "suspected", "likely", "questionable", "possible", or "still to be ruled out" are acceptable. IF IN AGREEMENT, YOU MUST DOCUMENT ABOVE DIAGNOSTIC STATEMENT IN DAILY PROGRESS NOTES AND DISCHARGE SUMMARY. This document is not part of the patient's record. Thank You, Dariel Robbins RN [phone]
--- NOTE | 2017-09-19 11:40 | Discharge Summary ---
Orthopedic Discharge Summary Admission Date/Reason Sep 16, 2017 at 11:30 Lumbar Spinal Stenosis. Discharge Date/Disposition Sep 19, 2017 Home Diagnosis Principal Diagnosis: Lumbar spinal stenosis Admission Physical Exam As per Admitting History & Physical. Hospital Course Patient underwent lumbar decompression fusion trolleys wound taken to the orthopedic floor postop we. Postop day #1 he was up and amatory progressed nicely through postoperative day #2 socially postoperative day #3 discharge home. Discharge orders and instructions found the chart for further review. Discharge Instructions Please refer to the electronic Patient Visit Report (Discharge Instructions) for additional information.
[2017-09-19] MEDS ORDERED: CHECK SCOPOLAMINE PATCH PLACEMENT SCH (16:00)
== END 2017-09-19 10:26 | disposition home or self-care (01) | DRG 455 ==
LOC: C.ACU 09:16 → C.3E 11:30 → ENRESERV 15:22
PROVIDERS: ADMIT Orthopaedic Surgery Orthopaedic Surgery of the Spine; ATTEND Orthopaedic Surgery Orthopaedic Surgery of the Spine
PROC: 0SP004Z Removal of Internal Fixation Device from Lumbar Vertebral Joint, Open Approach (ICD-10-PCS; principal; 2017-09-16 11:35)
PROC: 0ST20ZZ Resection of Lumbar Vertebral Disc, Open Approach (ICD-10-PCS; principal; 2017-09-16 11:35)
PROC: 0SG0071 Fusion of Lumbar Vertebral Joint with Autologous Tissue Substitute, Posterior Approach, Posterior Column, Open Approach (ICD-10-PCS; principal; 2017-09-16 11:35)
PROC: 0SG00AJ Fusion of Lumbar Vertebral Joint with Interbody Fusion Device, Posterior Approach, Anterior Column, Open Approach (ICD-10-PCS; principal; 2017-09-16 11:35)
DX: M48.061 Spinal stenosis, lumbar region without neurogenic claudication (principal); I10 Essential (primary) hypertension; Z79.899 Other long term (current) drug therapy; Z79.82 Long term (current) use of aspirin

== ENCOUNTER 2020-07-09 06:09 | Observation (INO) ==
--- NOTE | 2020-06-23 16:23 | PAT Medication Instructions ---
Medication Instructions Date of Service June 23, 2020 Home Medications allopurinol 100 mg PO QAM lisinopril 10 mg PO QAM aspirin 800 mg PO QAM ergocalciferol (vitamin D2) [Vitamin D2] 1,250 mcg PO WK lorazepam 0.5 mg PO HS PRN ASK your prescriber and surgeon aspirin 800 mg PO QAM DO NOT take the morning of surgery lisinopril 10 mg PO QAM ergocalciferol (vitamin D2) [Vitamin D2] 1,250 mcg PO WK Take morning of surgery With a small sip of water, OTHERWISE NOTHING TO EAT OR DRINK AFTER MIDNIGHT: allopurinol 100 mg PO QAM Take evening before surgery lorazepam 0.5 mg PO HS PRN (if needed) Other Notes If you have any questions please call us at [phone] or [phone] or [phone] or [phone]
--- NOTE | 2020-06-25 11:11 | Anesthesiology Consultation ---
Date of Service June 25, 2020 Assessment & Plan (1) Encounter for pre-operative examination: - Per assessment on 06/25: Travel screen negative. No known COVID-19 positive contacts or current COVID-19 related symptoms. Surgeon arranging preop COVID testing. Awaiting results. - S/P removal of previous hardware, L2-L4 decompression fusion: 06/01/18: Grade view 1, MAC#3, ETT 8.0 at [facility] - Hx PONV: no issues when scope patch used previously during 2018 lumbar surgery. Will order scope patch for AM DOS. Chart Review Chart Review: Acceptable Risk for Surgery and Patient seen in Pre Admission Testing Teaching & Discussion Pre-Anesthesia Teaching/Discussion Notes: Instructed NPO after midnight before surgery,except medications with 15 cc of water. Medication instructions provided according to the PAT guidelines. History Surgery Operation Date: 07/09/20 12:25 Proposed Procedures p Spinal Cord Stimulator Trial - Delano Davis DO Operation Date: 07/11/20 10:35 Proposed Procedures p Spinal Cord Stimulator Placement - Delano Davis DO Height/Weight Height: 6 ft Weight: 111.5 kg Allergies Allergy/AdvReac Type Severity Reaction Status Date / Time acetaminophen AdvReac Mild GI upset Verified 06/17/20 08:04 codeine AdvReac Mild N/V Verified 06/25/20 11:58 oxycodone AdvReac Mild N/V Verified 06/25/20 11:58 Medications Home Medications Medication Instructions Recorded Confirmed Last Taken allopurinol 100 mg PO QAM 05/09/18 06/17/20 Unknown lisinopril 10 mg PO QAM 05/09/18 06/17/20 05/31/18 05:00 aspirin 800 mg PO QAM 06/17/20 06/17/20 Unknown ergocalciferol (vitamin D2) 1,250 mcg PO WK 06/17/20 06/17/20 Unknown [Vitamin D2] lorazepam 0.5 mg PO HS PRN 06/17/20 06/17/20 Unknown Past Medical History Medical History Anxiety 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; "small meningioma" under surveillance by neurology Chronic back pain B/L LE radiculopathy/neuropathy Chronic headaches Claustrophobia Depression Foot drop left Gout Hypertension Lumbar stenosis with neurogenic claudication Obesity Osteoarthritis 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 , 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; grand mal seizures, no longer on anticonvulsants Exercise / Class Metabolic Activity II 4-5 Yardwork/Stairs/Walk up hill Past Surgical History Surgical History Fusion of spine x3 (lumbar), removal of previous hardware, L2-L4 decompression fusion: 06/01/18: Grade view 1, MAC#3, ETT 8.0 at [facility] History of adenoidectomy History of appendectomy History of colonoscopy History of esophagogastroduodenoscopy (EGD) History of repair of rotator cuff R/L History of tonsillectomy History of uvulopalatopharyngoplasty secondary to recurrent infection/scar tissue S/P cervical spinal fusion C2-C3 (full rom currently) Past Anesthesia History No Hx of Anesthesia Complications (except PONV) and No Family Hx of Anesthesia Complications History of PONV No Hx of Motion Sickness and History of PONV (no issues when scope patch used with 2018 lumbar surgery ) Social History Smoking Status: Never smoker Do You Dip or Chew Tobacco: No Hx Alcohol Use: Yes Alcohol type: beer alcohol intake frequency: a few times a week Hx Substance Use: No substance use type: does not use Review of Systems Chronic, dry cough x 25+ years felt related to lisinopril. Patient denies chest pain, shortness of breath, dyspnea on exertion, joint pain, reflux, wheezing, palpitations. Physical Exam Vital Signs VITALS BP 130/85 P 78 TEMP 98.3 SP02 95%RA RESP 16 PHYSICAL Full neck and c-spine range of motion. Full TMJ range of motion. TMD 3 finger breaths Mallampati Score 1 Dentition: intact, upper front capped tooth Lungs: clear throughout to auscultation Cardiac: regular rate and rhythm, no murmurs noted Spine: normal Carotid arteries: negative bruit Extremities: no edema Testing Laboratory Results 06/25/20 12:00 06/25/20 12:00 PT 10.1 Seconds (9.0-12.0) 06/25/20 12:00 INR 1.0 (0.9-1.1) 06/25/20 12:00 APTT 32.5 Seconds (21.0-31.0) H 06/25/20 12:00 Urine Color Yellow 06/25/20 Unknown Urine Appearance Clear (Clear) 06/25/20 Unknown Urine pH 5.0 (4.5-7.5) 06/25/20 Unknown Ur Specific [place] 1.008 (1.000-1.030) 06/25/20 Unknown Urine Protein Negative (Negative) 06/25/20 Unknown Urine Glucose (UA) Negative (Negative) 06/25/20 Unknown Urine Ketones Negative (Negative) 06/25/20 Unknown Urine Nitrite Negative (Negative) 06/25/20 Unknown Ur Leukocyte Esterase Negative (Negative) 06/25/20 Unknown Blood Type O Positive 06/25/20 12:00 Antibody Screen NEGATIVE 06/25/20 12:00 Electrocardiogram Date: 06/25/20 Findings: + NSR @ (70) Chest X-Ray Date: 06/25/20 FINDINGS: The cardiac and mediastinal contours are normal. There is no evidence of focal pulmonary consolidation. There is no evidence of failure. No pleural effusions are visualized. Postsurgical changes involve the left shoulder. IMPRESSION: No active disease in the chest.
--- NOTE | 2020-06-25 12:50 | XRay Report ---
XR chest Pre-admission PA/Lat CLINICAL HISTORY: Preoperative chest COMPARISON STUDY: 05/12/2018 FINDINGS: The cardiac and mediastinal contours are normal. There is no evidence of focal pulmonary co nsolidation. There is no evidence of failure. No pleural effusions are visualized.[Postsurgical butterfield es involve the left shoulder IMPRESSION: No active disease in the chest. ACT 112: Negative or not required by law. Electronically signed by: Mati Dunn M.D. 06/25/2020 12:49 PM
--- NOTE | 2020-06-25 13:34 | Electrocardiogram Report ---
Test Reason : Blood Pressure : / mmHG Vent. Rate : 070 BPM Atrial Rate : 070 BPM P-R Int : 178 ms QRS Dur : 086 ms QT Int : 388 ms P-R-T Axes : 039 036 021 degrees QTc Int : 419 ms Normal sinus rhythm Normal ECG When compared with ECG of 12-MAY-2018 14:18, No significant change was found Confirmed by Last Wood ([id number]) on 06/25/2020 1:33:57 PM Referred By: Delano Davis Confirmed By:Last Wood
[2020-06-25 14:58] LABS: Basophils # (auto) 0.05 K/uL (0-0.2); Basophils % (auto) 0.7 %; Eosinophils # (auto) 0.24 K/uL (0-0.5); Eosinophils % (auto) 3.4 %; Hematocrit (blood only) 46.5 % (42-52); Hemoglobin 15.4 g/dL (14.0-18.0); Immature Granulocytes # (auto) 0.01 K/uL (0.00-0.02); Immature Granulocytes % (auto) 0.1 %; Mean Corpuscular Hemoglobin 29.7 pg (25-34); Mean Corpuscular Hgb Conc 33.1 g/dL (32-36); Mean Corpuscular Volume 89.6 fL (80-100); Mean Platelet Volume 9.3 fL (7.4-10.4); Neutrophils # (auto) 4.13 K/uL (1.4-6.5); Neutrophils % (auto) 58.8 %; Platelet Count 367 K/uL (130-400); RDW Coefficient of Variation 13.1 % (11.5-14.5); Red Blood Count 5.19 M/uL (4.7-6.1); White Blood Count 7.03 K/uL (4.8-10.8)
[2020-06-25 14:58] LABS: Appearance Urine Clear (Clear); Bilirubin Urine Negative (Negative); Blood Urine Negative (Negative); Color Urine Yellow; Glucose Urine UA Negative (Negative); Ketones Urine Negative (Negative); Leukocyte Esterase Urine Negative (Negative); Nitrite Urine Negative (Negative); Protein Urine Negative (Negative); Specific Gravity Urine 1.008 (1.000-1.030); Urobilinogen Urine Negative (Negative)
[2020-06-25 15:05] LABS: BUN Creatinine Ratio 16.6 (10-20); Calcium 9.4 mg/dl (8.5-10.1); Creatinine Clr Calc Pharmacy 123.8 ml/min; Est GFR (African American) 113.1; Est GFR (Non-African American) 97.6; Potassium 4.4 mmol/L (3.5-5.1)
[2020-06-25 15:11] LABS: Partial Thromboplastin Ratio 1.2; Partial Thromboplastin Time 32.5 Seconds (21.0-31.0); Prothrombin Time 10.1 Seconds (9.0-12.0)
[~2020-07-09 06:09] MED LIST changes: +ACETAMINOPHEN 500 MG TAB PO SCH; -ASPI325T45 PO; -ATV/1 PO; -CEFAZOLIN 2000MG IV PUSH 10 ML IV SCH; +CeleBREX 200 MG CAP PO SCH; +GABAPENTIN 900 MG DOSE PO SCH; -IBUP-1050 PO; -LACTATED RINGER'S 1000ML 1,000 ML IV SCH; -LISI10TA PO; +LR 15ML/HR IV SCH; +ceFAZolin 2000MG 2,000 MG/15 ML SYR IV SCH
[2020-07-09] MEDS ORDERED: SCOPOLAMINE 1.5 MG TDSY TD ONE (06:20)
[2020-07-09] MEDS ORDERED: fentaNYL citrate 100 MCG/2 ML VIAL ONE (06:54)
[2020-07-09] MEDS ORDERED: MIDAZOLAM HCL 1 MG/ML 2ML VIAL ONE (06:54)
[2020-07-09] MEDS ORDERED: PROPOFOL IV EMULSION 10 MG/ML 20 ML VIAL IV ONE (06:59)
[2020-07-09] MEDS ORDERED: DEXAMETHASONE SOD INJ 4 MG/ML VIAL ONE (06:59)
[2020-07-09] MEDS ORDERED: ONDANSETRON INJ 2 MG/ML 2 ML VIAL ONE (06:59)
[2020-07-09] MEDS ORDERED: ROCURONIUM BROMIDE 10 MG/ML 5 ML VIAL IV ONE (06:59)
[2020-07-09] MEDS ORDERED: LIDOCAINE HCL 2% 2 ML VIAL/AMP(20MG/ML) INFIL ONE (06:59)
[2020-07-09] MEDS ORDERED: fentaNYL citrate 100 MCG/2 ML VIAL IV PRN (07:18)
[2020-07-09] MEDS ORDERED: HYDROmorphone INJ 2 MG/ML SYR/VIAL IV PRN (07:18)
[2020-07-09] MEDS ORDERED: ePHEDrine sulfate 50 MG/ML AMP IV PRN (07:18)
[2020-07-09] MEDS ORDERED: ONDANSETRON INJ 2 MG/ML 2 ML VIAL IV PRN ×2 (07:18→10:17)
[2020-07-09] MEDS ORDERED: ATROPINE SULFATE 0.1 MG/ML 10ML SYR IV PRN (07:18)
[2020-07-09] MEDS ORDERED: PROMETHAZINE HCL 12.5 MG in SODIUM CHLORIDE 0.9% 50 ML IV PRN ×2 (07:18→10:17)
--- NOTE | 2020-07-09 07:33 | History & Physical Bridge Note ---
Date of Service July 09, 2020 History & Physical Bridge Note I have examined the patient, reviewed the History & Physical and in the interval since the performance of the History & Physical I have noted the following changes of clinical significance: no changes noted
--- NOTE | 2020-07-09 07:34 | History & Physical Report ---
Date of Service July 09, 2020 Assessment & Plan (1) Chronic back pain greater than 3 months duration: Admission and Anticipated Discharge Date Admission Date: Spinal cord stimulator trial History of Present Illness Chief Complaint: Chronic back and leg pain Primary Care Provider: Eric Cee MD This is a 55-year-old male well-known to me the presents with chronic back and leg pain after failing course of nonoperative care is here for surgical invention. Allergies Allergy/AdvReac Type Severity Reaction Status Date / Time acetaminophen AdvReac Mild GI upset Verified 06/17/20 08:04 codeine AdvReac Mild N/V Verified 07/09/20 06:25 oxycodone AdvReac Mild N/V Verified 07/09/20 06:25 Home Medications Home Medications Medication Instructions Recorded Confirmed Type allopurinol 100 mg PO QAM 05/09/18 07/09/20 History lisinopril 10 mg PO QAM 05/09/18 07/09/20 History aspirin 800 mg PO TID 06/17/20 07/09/20 History ergocalciferol (vitamin D2) 50,000 mcg PO WK 06/17/20 07/09/20 History [Vitamin D2] lorazepam 0.5 mg PO HS PRN 06/17/20 07/09/20 History gabapentin 300 mg PO TID 07/09/20 07/09/20 History Past Med/Surg History Medical History (Updated 07/09/20 @ 07:34 by Delano aDvis DO) Anxiety 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; "small meningioma" under surveillance by neurology Chronic back pain B/L LE radiculopathy/neuropathy Chronic headaches Claustrophobia Depression Foot drop left Gout Hypertension Lumbar stenosis with neurogenic claudication Obesity Osteoarthritis 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 , 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; grand mal seizures, no longer on anticonvulsants Surgical History Fusion of spine x3 (lumbar), removal of previous hardware, L2-L4 decompression fusion: 06/01/18: Grade view 1, MAC#3, ETT 8.0 at [facility] History of adenoidectomy History of appendectomy History of colonoscopy History of esophagogastroduodenoscopy (EGD) History of repair of rotator cuff R/L History of tonsillectomy History of uvulopalatopharyngoplasty secondary to recurrent infection/scar tissue S/P cervical spinal fusion C2-C3 (full rom currently) Social History Smoking Status: Never smoker Second Hand Exposure: No; Do You Dip or Chew Tobacco: No; Tobacco Cessation Education Requested by Patient: No Hx Alcohol Use: Yes Alcohol type: beer Hx Substance Use: No Preferred Language: Swedish Communication Ability: Effective Blow Mold Operator Required: No Beliefs That Will Affect Care: None Current Living Situation: Spouse and Family Other Information That Helps Us Care for You: No Feels Safe at Home: Yes Safety Concerns: Feels Safe At This Time Assistive Devices: Cane and Hearing Aid - Bilateral Physical Exam Physical Exam: Patient is alert and oriented neurologically intact Heart regular rhythm Lungs clear to auscultation Results & Data ([facility]) Vital Signs (Past 12 Hours) Vital Signs Temp Pulse Resp BP Pulse Ox 07/09/20 06:42 36.8 C 83 18 139/88 97
[2020-07-09] MEDS ORDERED: EPINEPHrine INJ 1 MG/ML AMP ONE (07:35)
[2020-07-09] MEDS ORDERED: BUPIVACAINE 0.5 % 5 MG/1 ML MPF 30ML VIAL ONE (07:35)
[2020-07-09] MEDS ORDERED: BACITRACIN INJ 50,000 UNIT VIAL ONE (07:35)
[2020-07-09] MEDS ORDERED: LARYING-O-JET KIT (LTA) ONE (08:20)
[2020-07-09] MEDS ORDERED: GLYCOPYRROLATE 0.2 MG/ML VIAL ONE (08:25)
[2020-07-09] MEDS ORDERED: NEOSTIGMINE METHYLSULFATE 1 MG/ML 10ML VIAL ONE (08:25)
[2020-07-09] MEDS ORDERED: FLOSEAL HEMOSTATIC MATRIX 10ML TOP ONE (08:43)
--- NOTE | 2020-07-09 08:44 | Operative Report ---
Post Operative Report Pre & Post Diagnosis Operation Date: 07/09/20 07:45 Chronic persistent back and bilateral leg pain Operation Date: 07/11/20 10:35 <No data on this case meets the specified criteria> I identified the patient and participated in the time-out.: Yes Procedure Operation Date: 07/09/20 07:45 #1 T10 laminotomy. #2 placement of 16-lead dorsal column stimulator paddle with temporary leads. Operation Date: 07/11/20 10:35 <No data on this case meets the specified criteria> Surgeon Delano Davis, Breaker Operator Mary Ann Jones Estimated Blood Loss 10 Findings Consistent with Post-Op Diagnosis Specimens None Indications This is a 55-year-old male well-known to me the presents with above-mentioned diagnosis after failing extensive course of nonoperative care is here for the above-mentioned procedure. Description of Procedure Patient was met with identified informed consent obtained. Patient was then taken to the operative suite underwent an patient placed in a prone position the Rex table on top of the Selvin frame. All bony prominences well-padded eyes inspected to ensure no external pressure placed upon the. This point the thoracolumbar spine was prepped and draped normal sterile fashion. Sharp dissection with assistance of Bovie cautery was performed down to and exposing the interlaminar space at T10-T11. I then performed a T10 laminotomy large enough for a paddle to be placed. It was then placed between T8 and T10 pedicles. It was aligned perfectly on imaging. Then attached temporary leads and by way of a trocar the leads out to the left flank. It was attached to the temporary stimulator and tested for efficacy. Once this was established the incisions were copiously irrigated and closed with subcutaneous Vicryl 4 Monocryl for final skin closure. Please note Mary Ann Jones was present for the entire procedure involved the patient positioning complex portions of the surgery and final skin closure. Lastly spinal cord monitoring was utilized throughout the procedure no changes noted. I attest to the content of the Intraoperative Record and any orders documented therein. Any exceptions are noted below.
--- NOTE | 2020-07-09 09:09 | Fluoroscopy Report ---
FL spine 1V any level HISTORY: 55 years-old Male SPINAL CORD STIM TRIAL COMPARISON: Lumbar spine fluoroscopic images 06/01/2018 TECHNIQUE: One spot fluoroscopic image of the spine was obtained utilizing 5.4 seconds fluoroscopy ti me FINDINGS: Spinal stimulator leads are noted overlying the midthoracic spine. The imaged leads appear intact. Th ere is a metallic surgical device overlying the midline which is partially imaged. IMPRESSION: Fluoroscopic assistance as above. Please see operative report for further details. ACT 112: Negative or not required by law. The above report was generated using voice recognition software. It may contain grammatical, syntax o r spelling errors. Electronically signed by: Myron Salguero M.D. 07/09/2020 9:08 AM
--- NOTE | 2020-07-09 10:05 | Anesthesiology Progress Note ---
Date of Service July 09, 2020 Anesthesia Post Procedure Vital Signs Vital Signs: Temp Pulse Pulse Resp BP BP Pulse Ox 07/09/20 09:45 36.4 C L 81 18 123/67 96 07/09/20 09:30 82 16 103/75 97 07/09/20 09:20 78 16 119/68 96 07/09/20 09:10 79 12 116/75 98 07/09/20 09:00 79 12 127/84 100 07/09/20 08:51 36.2 C L 78 12 129/90 97 07/09/20 06:42 36.8 C 83 18 139/88 97 Pain Intensity Lower Back: Pain Intensity: 8 Bilateral Leg: Pain Intensity: 8 Transfer of Care Handoff Completed per policy Notes Mental Status: alert / awake / arousable and participated in evaluation Patient Amnestic to Procedure: Yes Nausea / Vomiting: adequately controlled Pain: adequately controlled Airway Patency, RR, SpO2: stable & adequate BP & HR: stable & adequate Hydration State: stable & adequate Anesthetic Complications: no major complications apparent and Pt Satisfied with anesthetic care
[2020-07-09] MEDS ORDERED: DO NOT ADMINISTER FLU VACCINE PRN (10:17)
[2020-07-09] MEDS ORDERED: ONDANSETRON 4 MG OD TAB PO PRN (10:17)
[2020-07-09] MEDS ORDERED: FAMOTIDINE 20 MG TAB PO PRN (10:17)
[2020-07-09] MEDS ORDERED: SOD PHOSPHATE/SOD BIPHOSPHATE ENEMA 132 ML BTL PR PRN (10:17)
[2020-07-09] MEDS ORDERED: hydrOXYzine HCl 25 MG TAB PO PRN (10:17)
[2020-07-09] MEDS ORDERED: METOCLOPRAMIDE HCL INJ 5 MG/ML 2 ML VIAL IV PRN (10:17)
[2020-07-09] MEDS ORDERED: ALUMINUM/MAGNESIUM SUSP 30 ML UDC PO PRN (10:17)
[2020-07-09] MEDS ORDERED: MAGNESIUM HYDROXIDE SUSP 30 ML UDC PO PRN (10:17)
[2020-07-09] MEDS ORDERED: NALOXONE HCL 0.4 MG/1 ML VIAL/CARP IV PRN (10:17)
[2020-07-09] MEDS ORDERED: LORazepam 0.5 MG TAB PO PRN (10:17)
[2020-07-09] MEDS ORDERED: diphenhydrAMINE Capsule 25 MG CAP PO PRN (10:17)
[2020-07-09] MEDS ORDERED: DO NOT ADMINISTER PNEUMOCOCCAL VACCINE PRN (10:17)
[2020-07-09] MEDS ORDERED: bisacodyL 10 MG SUPP PR PRN (10:17)
[2020-07-09] MEDS ORDERED: LORazepam 0.5 MG/1 ML VIAL IV PRN (10:17)
[2020-07-09] MEDS: LACTATED RINGER'S 1,000 ML IV SCH ×2 (11:41→19:41)
[2020-07-09] MEDS: lisinopril 10 MG TAB PO SCH (11:41)
[2020-07-09] MEDS: GABAPENTIN 300 MG CAP PO SCH ×2 (11:41→21:46)
[2020-07-09] MEDS: allopurinoL 100 MG TAB PO SCH (11:42)
[2020-07-09] MEDS: traMADol HCL 50 MG TABLET PO PRN ×2 (15:25→21:46)
[2020-07-09] MEDS: ceFAZolin 2000MG 2,000 MG/15 ML SYR IV SCH ×2 (16:30→23:52)
[2020-07-09] MEDS ORDERED: Nursing to Pharmacy Communication SCH (18:30)
[2020-07-09] MEDS ORDERED: DOCUSATE SODIUM/SENNA 50/8.6MG TAB PO STA (18:31)
[2020-07-09] MEDS: DOCUSATE SODIUM/SENNA 50/8.6MG TAB PO SCH (19:12)
[2020-07-09] MEDS ORDERED: DOCUSATE SODIUM/SENNA 50/8.6MG TAB PO SCH (21:00)
[2020-07-10] MEDS: HYDROmorphone INJ 0.5 MG/0.5 ML SYR IV PRN (00:24)
[2020-07-10] MEDS: LACTATED RINGER'S 1,000 ML IV SCH (04:29)
[2020-07-10] MEDS: POLYETHYLENE (MIRALAX) 17 GM PACK PO SCH ×3 (06:04→17:56)
[2020-07-10] MEDS: HYDROmorphone INJ 1 MG/ML SYRINGE IV PRN ×3 (06:06→20:11)
[2020-07-10] MEDS: allopurinoL 100 MG TAB PO SCH (07:54)
[2020-07-10] MEDS: GABAPENTIN 300 MG CAP PO SCH ×3 (07:54→20:12)
--- NOTE | 2020-07-10 08:31 | Orthopedic Progress Note ---
Date of Service July 10, 2020 Assessment & Plan (1) Chronic back pain greater than 3 months duration: Admission and Anticipated Discharge Date Admission Date: July 09, 2020 This time is obtaining significant improvement with his dorsal column stimulator trial. We'll make him n.p.o. after midnight. We'll plan for implantation tomorrow. Subjective Leg symptoms markedly improved. He is very happy. Physical Exam Physical Exam: Patient is in the chair is good strength testing. Results & Data ([facility]) Vital Signs (Past 12 Hours) Vital Signs Temp Pulse Pulse Resp BP Pulse Ox 07/10/20 08:05 36.8 C 90 17 117/78 94 07/10/20 06:21 96 H 07/10/20 03:40 36.7 C 110 H 16 110/66 96 07/09/20 23:01 36.7 C 95 H 16 134/85 96
[2020-07-10] MEDS ORDERED: ERGOCALCIFEROL 50,000 UNITS 1250 MCG CAP PO SCH (09:00)
[2020-07-10] MEDS: lisinopril 10 MG TAB PO SCH (09:20)
[2020-07-10] MEDS: DOCUSATE SODIUM/SENNA 50/8.6MG TAB PO SCH (20:12)
[2020-07-11] MEDS: HYDROmorphone INJ 1 MG/ML SYRINGE IV PRN ×2 (00:04→07:07)
[2020-07-11] MEDS: POLYETHYLENE (MIRALAX) 17 GM PACK PO SCH ×3 (00:04→11:32)
[2020-07-11] MEDS ORDERED: fentaNYL citrate 100 MCG/2 ML VIAL ONE ×2 (07:05)
[2020-07-11] MEDS ORDERED: MIDAZOLAM HCL 1 MG/ML 2ML VIAL ONE (07:05)
[2020-07-11] MEDS ORDERED: KETAMINE 50 MG/5 ML SYRINGE ONE (08:07)
--- NOTE | 2020-07-11 08:20 | Anesthesiology Consultation ---
Date of Service July 11, 2020 The patient had surgery on 07/09/20. Assessment & Plan (1) Encounter for pre-operative examination: Chart Review Chart Review: Acceptable Risk for Surgery and Patient NOT seen in Pre Admission Testing Consults Requested none History Surgery Operation Date: 07/09/20 07:45 Proposed Procedures p Spinal Cord Stimulator Trial - Delano Davis DO Operation Date: 07/11/20 09:05 Proposed Procedures p Spinal Cord Stimulator Placement - Delano Davis DO Height/Weight Height: 6 ft Weight: 110 kg Allergies Allergy/AdvReac Type Severity Reaction Status Date / Time acetaminophen AdvReac Mild GI upset Verified 06/17/20 08:04 codeine AdvReac Mild N/V Verified 07/09/20 06:25 oxycodone AdvReac Mild N/V Verified 07/09/20 06:25 Medications Home Medications Medication Instructions Recorded Confirmed Last Taken allopurinol 100 mg PO QAM 05/09/18 07/09/20 07/08/20 06:00 lisinopril 10 mg PO QAM 05/09/18 07/09/20 07/08/20 06:00 aspirin 800 mg PO TID 06/17/20 07/09/20 06/29/20 08:00 ergocalciferol (vitamin D2) 50,000 mcg PO WK 06/17/20 07/09/20 06/28/20 08:00 [Vitamin D2] lorazepam 0.5 mg PO HS PRN 06/17/20 07/09/20 07/06/20 21:00 gabapentin 300 mg PO TID 07/09/20 07/09/20 07/08/20 06:00 Active Medications Generic Name Dose Route Start Last Admin Trade Name Freq PRN Reason Stop Dose Admin Allopurinol 100 mg 07/09/20 10:17 07/10/20 07:54 Allopurinol 100 Mg Tab PO 08/08/20 10:16 100 mg QAM SONIYA Administration Ergocalciferol 50,000 units 07/10/20 09:00 07/10/20 07:54 Ergocalciferol 50,000 Units Cap PO 08/09/20 08:59 50,000 units Th SONIYA Administration Gabapentin 300 mg 07/09/20 14:00 07/10/20 20:12 Gabapentin 300 Mg Cap PO 12/04/20 13:59 300 mg TID SONIYA Administration Hydromorphone HCl 0.5 mg 07/09/20 10:17 07/10/20 00:24 Hydromorphone Inj 0.5 Mg/0.5 Ml Syr IV 07/23/20 10:16 0.5 mg Q3H PRN Administration MOD pain (scale 4-6) & Pre PT Hydromorphone HCl 1 mg 07/09/20 10:17 07/11/20 07:07 Hydromorphone Inj 1 Mg/Ml Syringe IV 07/23/20 10:16 1 mg Q3H PRN Administration severe pain (scale 7-10) Lorazepam 0.5 mg in 1 mls @ 1 mls/min 07/09/20 10:17 07/10/20 00:24 Ativan IV 08/08/20 10:16 1 mls/min Q8H PRN Administration Sedation/Anxiety Lisinopril 10 mg 07/09/20 10:17 07/10/20 09:20 Lisinopril 10 Mg Tab PO 08/08/20 10:16 10 mg QAM SONIYA Administration Lorazepam 0.5 mg 07/09/20 10:17 07/10/20 18:47 Lorazepam 0.5 Mg Tab PO 08/08/20 10:16 0.5 mg Q8H PRN Administration Sedation/Anxiety Polyethylene Glycol 17 gm 07/10/20 06:00 07/11/20 05:41 Polyethylene (Miralax) 17 Gm Pack PO 08/09/20 05:59 Not Given Q6 SONIYA Senna/Docusate Sodium 2 tab 07/09/20 21:00 07/10/20 20:12 Docusate Sodium/Senna 50/8.6mg Tab PO 08/08/20 20:59 2 tab HS SONIYA Administration Tramadol HCl 50 - 100 mg 07/09/20 10:17 07/09/20 21:46 Tramadol Hcl 50 Mg Tablet PO 08/08/20 10:16 100 mg Q4H PRN Administration Moderate-Severe Pain & Pre PT NPO Date Last Intake of Fluids: 07/10/20 Time Last Intake of Fluids: 23:59 Date Last Intake of Solids: 07/10/20 Time Last Intake of Solids: 23:59 Past Medical History Medical History (Updated 07/11/20 @ 08:21 by Mauro Yanes MD) Anxiety 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; "small meningioma" under surveillance by neurology Chronic back pain B/L LE radiculopathy/neuropathy Chronic headaches Claustrophobia Depression Foot drop left Gout Hypertension Lumbar stenosis with neurogenic claudication Obesity Osteoarthritis 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 , 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; grand mal seizures, no longer on anticonvulsants Past Surgical History Surgical History Fusion of spine x3 (lumbar), removal of previous hardware, L2-L4 decompression fusion: 06/01/18: Grade view 1, MAC#3, ETT 8.0 at [facility] History of adenoidectomy History of appendectomy History of colonoscopy History of esophagogastroduodenoscopy (EGD) History of repair of rotator cuff R/L History of tonsillectomy History of uvulopalatopharyngoplasty secondary to recurrent infection/scar tissue S/P cervical spinal fusion C2-C3 (full rom currently) Social History Smoking Status: Never smoker Do You Dip or Chew Tobacco: No Hx Alcohol Use: Yes Alcohol type: beer alcohol intake frequency: a few times a week Hx Substance Use: No substance use type: does not use Physical Exam Vital Signs Last Vital Signs Temp 36.8 C 07/11/20 07:00 Pulse 88 07/11/20 07:00 Resp 16 07/11/20 07:00 BP 123/82 07/11/20 07:00 Pulse Ox 94 07/11/20 07:00 Testing Laboratory Results 06/25/20 12:00 06/25/20 12:00 PT 10.1 Seconds (9.0-12.0) 06/25/20 12:00 INR 1.0 (0.9-1.1) 06/25/20 12:00 APTT 32.5 Seconds (21.0-31.0) H 06/25/20 12:00 Urine Color Yellow 06/25/20 Unknown Urine Appearance Clear (Clear) 06/25/20 Unknown Urine pH 5.0 (4.5-7.5) 06/25/20 Unknown Ur Specific [place] 1.008 (1.000-1.030) 06/25/20 Unknown Urine Protein Negative (Negative) 06/25/20 Unknown Urine Glucose (UA) Negative (Negative) 06/25/20 Unknown Urine Ketones Negative (Negative) 06/25/20 Unknown Urine Nitrite Negative (Negative) 06/25/20 Unknown Ur Leukocyte Esterase Negative (Negative) 06/25/20 Unknown Blood Type O Positive 06/25/20 12:00 Antibody Screen NEGATIVE 06/25/20 12:00 Electrocardiogram Date: 06/25/20 Findings: + NSR @ (70) Chest X-Ray Date: 06/25/20 FINDINGS: The cardiac and mediastinal contours are normal. There is no evidence of focal pulmonary consolidation. There is no evidence of failure. No pleural effusions are visualized. Postsurgical changes involve the left shoulder. IMPRESSION: No active disease in the chest.
[2020-07-11] MEDS ORDERED: LABETALOL HCL IV 5 MG/ML 20ML IV PRN (08:22)
[2020-07-11] MEDS ORDERED: ePHEDrine sulfate 50 MG/ML AMP IV PRN (08:22)
[2020-07-11] MEDS ORDERED: HYDROmorphone INJ 1 MG/ML SYRINGE IV PRN (08:22)
[2020-07-11] MEDS ORDERED: ONDANSETRON INJ 2 MG/ML 2 ML VIAL IV PRN (08:22)
[2020-07-11] MEDS ORDERED: fentaNYL citrate 100 MCG/2 ML VIAL IV PRN (08:22)
[2020-07-11] MEDS ORDERED: PHENYLEPHRINE 100MCG/ML 5ML SYR IV PRN (08:22)
[2020-07-11] MEDS ORDERED: ATROPINE SULFATE 0.1 MG/ML 10ML SYR IV PRN (08:22)
--- NOTE | 2020-07-11 08:24 | History & Physical Bridge Note ---
Date of Service July 11, 2020 History & Physical Bridge Note I have examined the patient, reviewed the History & Physical and in the interval since the performance of the History & Physical I have noted the following changes of clinical significance: no changes noted Spinal cord stimulator placement
[2020-07-11] MEDS ORDERED: BACITRACIN INJ 50,000 UNIT VIAL ONE ×3 (08:50→09:34)
[2020-07-11] MEDS ORDERED: EPINEPHrine INJ 1 MG/ML AMP ONE (08:50)
[2020-07-11] MEDS ORDERED: BUPIVACAINE 0.5 % 5 MG/1 ML MPF 30ML VIAL ONE (08:50)
[2020-07-11] MEDS ORDERED: FLOSEAL HEMOSTATIC MATRIX 10ML TOP ONE (09:24)
[2020-07-11] MEDS ORDERED: ceFAZolin 2000MG 2,000 MG/15 ML SYR IV ONE (09:24)
--- NOTE | 2020-07-11 09:49 | Operative Report ---
Post Operative Report Pre & Post Diagnosis Operation Date: 07/09/20 07:45 Pre-Op Diagnosis: Lumbar Postlaminectomy Syndrome Post-Op Diagnosis: Lumbar Postlaminectomy Syndrome Operation Date: 07/11/20 09:05 Pre-Op Diagnosis: Lumbar Postlaminectomy Syndrome Post-Op Diagnosis: Lumbar Postlaminectomy Syndrome I identified the patient and participated in the time-out.: Yes Procedure Operation Date: 07/09/20 07:45 Actual Procedures p Spinal Cord Stimulator Trial(Not Applicable) - Delano Davis DO Operation Date: 07/11/20 09:05 Actual Procedures p Spinal Cord Stimulator Placement(Not Applicable) - Delano Davis DO Surgeon Delano Davis DO Managed Care Manager Vijay Wills Estimated Blood Loss 10 Findings Consistent with Post-Op Diagnosis Specimens None Indications Patient had spinal cord stimulator trial 2 days ago. He had excellent results and subsequently here for permanent placement. Description of Procedure Patient was met with identified informed consent obtained. Patient was then taken to the operative suite underwent an patient placed in a prone position the Rex table on top Selvin frame. All bony prominences well-padded eyes inspected to ensure no external pressure placed upon them. This point the thoracolumbar spine was prepped and draped in a sterile fashion. I then opened the laminotomy site at T10-T11 expose the temporary leads. They were removed. I then created a pocket along the right flank large enough for a battery. By way of a trocar the leads were taken to that pocket and attached to the battery. It was tested for impedances and efficacy. Once this was established the battery was placed within the pocket. The incisions were copiously irrigated with antibiotic solution and closed with subcutaneous Vicryl and 4 Monocryl for final skin closure. Steri-Strip sterile dressings placed. Patient waken taken to PACU stable condition. Please note Vijay rodriguez was present at the entire procedure involved the patient positioning complex portions of the surgery and final skin closure. I attest to the content of the Intraoperative Record and any orders documented therein. Any exceptions are noted below.
--- NOTE | 2020-07-11 09:51 | Discharge Summary ---
Date of Service July 11, 2020 Admission HPI Per Admitting Provider This is a 55-year-old male well-known to me the presents with chronic back and leg pain after failing course of nonoperative care is here for surgical invention. Principal Diagnosis Chronic back and bilateral leg pain Discharge Data Allergies Allergy/AdvReac Type Severity Reaction Status Date / Time acetaminophen AdvReac Mild GI upset Verified 06/17/20 08:04 codeine AdvReac Mild N/V Verified 07/09/20 06:25 oxycodone AdvReac Mild N/V Verified 07/09/20 06:25 Procedures Performed Operation Date: 07/09/20 07:45 Actual Procedures p Spinal Cord Stimulator Trial(Not Applicable) - Delano Davis DO Operation Date: 07/11/20 09:05 Actual Procedures p Spinal Cord Stimulator Placement(Not Applicable) - Delano Davis DO Ordered Studies 07/09/20 07:45 FL fluoroscopy <1hr Routine FL spine 1V any level Routine 07/11/20 09:05 FL fluoroscopy <1hr Routine FL lumbar spine 2-3V Routine Hospital Course (1) Chronic back pain greater than 3 months duration: Patient underwent spinal cord stimulator trial and postoperatively was obtaining significant improvement of his back and leg symptoms. Subsequently underwent permanent placement tolerated this well and subsequent discharge home. Discharge orders instructions from the chart for further review. Total Time Total Time Spent Total Time Spent (In Minutes): 20 minutes Discharge Plan Discharge Items Patient Disposition: Home - Self-Care Reason For Visit: Lumbar Postlaminectomy Syndrome Discharge Diagnosis: Lumbar postlaminectomy syndrome Activity: As commented below Non-emergency contact: Primary Care Provider Call non-emergency contact if: you have any medication questions Follow-up/Referrals: Eric Cee MD [Primary Care Provider] - Diet: Regular Addtl Attending Provider Instructions: ACTIVITY RECOMMENDATIONS: SELF CARE INSTRUCTIONS AFTER A LAMINECTOMY 1. No prolonged sitting (less than 30 minutes for the first 3 weeks after surgery). 2. No bending, lifting more than 5 pounds, or twisting (roll like a log when turning in bed). 3. You may shower 3 days after surgery if no drainage from wound. Thoroughly dry wound. Do not soak in the tub. 4. Please walk as much as you can for exercise. Gradually increase the distance that you walk as your endurance increases. 5. You may drive in 7-10 days if you are comfortable and no longer requiring pain medications. SPECIAL CARE INSTRUCTIONS: VERY IMPORTANT TO READ AND REVIEW A. Your surgical incision has been closed with a cosmetic suture under the skin that will dissolve in about 6 weeks. In 14 days, you can use a pair of clean scissors and cut the suture that is left outside of the skin at the ends of your incision. B. Complications are uncommon, but please contact us if you have any signs or symptoms of: 1. wound infection (fever higher than 102.5 degrees F, redness, separation of wound, drainage, or increasing pain from the incision) 2. blood clots in legs (pain, swelling, redness and warmth in legs) 3. urinary tract infection (fever higher than 102.5 degrees, burning upon urination or increased frequency of urination) 4. nerve problems (inability to walk on your toes or heels, numbness, loss of bowel or bladder control) 5. any other symptoms that concern you. C. Please call the office at if you have any concerns or questions about your operation or recovery. MANAGING PAIN AFTER SPINAL SURGERY 1. Narcotic medication is intended for short-term use and will be provided for surgical pain. Surgical pain usually lasts for a period of 4-6 weeks. Narcotic medication includes Percocet, Vicodin, Darvocet, Tylenol #3 or Lortab. 2. Longer-term pain is more appropriately treated with non-narcotic medication such as Tylenol ES. 3. Muscle spasm is not appropriately treated with narcotics. Muscle relaxers such as Soma, Flexeril or Skelaxin can be used along with Tylenol ES. 4. Remember that we all live with some "aches and pains". This is not unusual or uncommon after an injury or as we get older. 5. We will provide appropriate medication within the normal guidelines of their prescribed use. We will also be very cautious and aware of potential abuse and extended duration of patients' medication needs. 6. Please allow 2-3 days to process refills. Prescriptions will not be mailed but must be picked up at the office. FOLLOW UP VISIT: Keep your scheduled follow-up appointment. Any questions, please call the office at . Pending Studies at Discharge: No Stand-Alone Forms: My [facility], Smoking Cessation Medications and DC Order Prescriptions: New tramadol 50 mg tablet 50 mg PO Q6H PRN (Reason: pain, moderate) Qty: 15 RF: 0 oxycodone 5 mg tablet 5 mg PO Q6H PRN (Reason: pain, severe) Qty: 15 RF: 0 Continued lisinopril 10 mg Tablet 10 mg PO QAM RF: 0 allopurinol 100 mg Tablet 100 mg PO QAM RF: 0 aspirin 800 mg Tablet Extended Release 800 mg PO TID RF: 0 lorazepam 0.5 mg tablet 0.5 mg PO HS PRN (Reason: sleep) RF: 0 ergocalciferol (vitamin D2) [Vitamin D2] 1,250 mcg (50,000 unit) Capsule 50,000 mcg PO WK RF: 0 gabapentin 300 mg Capsule 300 mg PO TID RF: 0 Discharge Orders: Discharge Order (Routine); Ordered 07/11/20 Ordered By: Delano Davis Admission Data Admit Date/Time: 07/09/20 08:57 Attending Provider: Delano Davis Admit Provider: Delano Davis Primary Care Provider: Eric Cee
--- NOTE | 2020-07-11 11:06 | Anesthesiology Progress Note ---
Date of Service July 11, 2020 Anesthesia Post Procedure Vital Signs Vital Signs: Temp Pulse Pulse Pulse Resp BP Pulse Ox 07/11/20 11:00 36.4 C L 90 14 139/82 94 07/11/20 10:50 90 14 127/83 94 07/11/20 10:40 93 H 12 143/85 H 93 07/11/20 10:30 86 12 133/75 96 07/11/20 10:20 90 16 127/78 100 07/11/20 10:12 36.8 C 95 H 16 122/85 98 07/11/20 08:30 37.2 C 95 H 18 131/82 96 07/11/20 07:00 36.8 C 88 16 123/82 94 07/10/20 23:10 36.9 C 88 16 126/74 94 07/10/20 15:09 37.1 C 101 H 17 124/75 94 07/10/20 11:28 36.6 C 93 H 16 126/81 99 Pain Intensity Lower Back: Pain Intensity: 2 Bilateral Leg: Pain Intensity: 2 Medial Back: Pain Intensity: 2 Transfer of Care Handoff Completed per policy Notes Mental Status: alert / awake / arousable Patient Amnestic to Procedure: Yes Nausea / Vomiting: adequately controlled Pain: adequately controlled Airway Patency, RR, SpO2: stable & adequate BP & HR: stable & adequate Hydration State: stable & adequate Anesthetic Complications: no major complications apparent and Pt Satisfied with anesthetic care
[2020-07-11] MEDS ORDERED: LORazepam 0.5 MG TAB PO PRN (11:14)
[2020-07-11] MEDS: lisinopril 10 MG TAB PO SCH (11:32)
[2020-07-11] MEDS: GABAPENTIN 300 MG CAP PO SCH ×2 (11:32→14:42)
[2020-07-11] MEDS: allopurinoL 100 MG TAB PO SCH (11:33)
[2020-07-11] MEDS ORDERED: ASPIRIN PO SCH (14:00)
[2020-07-11] MEDS: HYDROmorphone INJ 0.5 MG/0.5 ML SYR IV PRN (15:34)
== END 2020-07-11 16:20 | disposition home or self-care (01) ==
LOC: ASU 06:09 → INTOOBSV 08:57 → 3E 08:57

== ENCOUNTER 2024-04-09 10:04 | Inpatient (IN) ==
--- NOTE | 2024-03-29 08:40 | PAT Medication Instructions ---
Medication Instructions Date of Service March 29, 2024 Home Medications lorazepam 0.5 mg tablet 0.5 mg PO HS PRN sleep Aspirin Bc Brand 845 mg PO QID allopurinol 300 mg tablet 300 mg PO QPM losartan 50 mg tablet 50 mg PO QPM metformin 500 mg tablet 500 mg PO QPM simvastatin 10 mg tablet 10 mg PO PM ASK your prescriber and surgeon Aspirin Bc Brand 845 mg PO QID Take evening before surgery lorazepam 0.5 mg tablet 0.5 mg PO HS PRN sleep (if needed) allopurinol 300 mg tablet 300 mg PO QPM losartan 50 mg tablet 50 mg PO QPM metformin 500 mg tablet 500 mg PO QPM simvastatin 10 mg tablet 10 mg PO PM Other Notes If you have any questions please call us at [phone] or [phone] or [phone] or [phone]
--- NOTE | 2024-04-02 10:56 | Anesthesiology Consultation ---
Date of Service April 02, 2024 Assessment & Plan (1) Encounter for pre-operative examination: - Check BSG AM DOS - Infectious disease screening: Per assessment on 04/02/24: No known recent infectious disease contacts or current infectious disease symptoms. - S/P Right Shoulder Arthroscopy Sub-Acromial Decompression, RCR, Subacromial Bursectomy, Biceps Tenotomy (09/16/22): Grade III view with MAC #3 > Glidescope#4 with good view, atraumatic, ETT 7.5 + regional at [facility]. - Patient acceptable risk for surgery pending surgeon-ordered PCP preop evaluation (ROXIE Mcneal, appt 04/02). Chart Review Chart Review: Patient seen in Pre Admission Testing Teaching & Discussion Pre-Anesthesia Teaching/Discussion Notes: Instructed NPO after midnight before surgery,except medications with 15 cc of water. Medication instructions provided according to the PAT guidelines. History Surgery Operation Date: 04/09/24 11:55 Proposed Procedures p L1-L2 Decompression, T12-L4 Fusion, L2-L4 Hardware Removal - Delano Davis DO Height/Weight Height: 6 ft 1 in Weight: 103.1 kg Allergies Allergy/AdvReac Type Severity Reaction Status Date / Time acetaminophen AdvReac Mild GI upset Verified 03/28/24 13:45 codeine AdvReac Mild N/V Verified 03/28/24 13:45 oxycodone AdvReac Mild N/V Verified 03/28/24 13:45 lisinopril AdvReac Unknown Cough Verified 04/02/24 11:27 Medications Home Medications Medication Instructions Recorded Confirmed Last Taken lorazepam 0.5 mg tablet 0.5 mg PO HS PRN sleep 06/17/20 03/28/24 09/15/22 20:00 Aspirin Bc Brand 845 mg PO QID 08/26/22 03/28/24 09/07/22 allopurinol 300 mg tablet 300 mg PO QPM 08/26/22 03/28/24 09/15/22 22:00 losartan 50 mg tablet 50 mg PO QPM 08/26/22 03/28/24 09/15/22 07:30 metformin 500 mg tablet 500 mg PO QPM 03/28/24 03/28/24 Unknown simvastatin 10 mg tablet 10 mg PO PM 03/28/24 03/28/24 Unknown Past Medical History Medical History Anxiety Brain tumor (benign) Sx 1987 s/p encephalopathy 2/2 bacterial meningitis "Small meningioma" under surveillance by neurology ( neurology, Dr. Pepe) Stable per recent surveillance imaging/no recent issues Cervical stenosis of spinal canal Chronic back pain B/L LE radiculopathy/neuropathy Chronic headaches Claustrophobia Diabetes mellitus, type 2 Foot drop L > R (wears brace PRN) Hx of gout Hypertension Lumbar stenosis with neurogenic claudication Obesity Osteoarthritis Seizure Last seizure (felt secondary to encephalitis/meningitis); grand mal seizures No longer on anticonvulsants, no issues since Exercise / Class Metabolic Activity II 4-5 Yardwork/Stairs/Walk up hill (one FS: No CP, no SOB) Past Family History Family History Other No family history of adverse response to anesthesia Past Surgical History Surgical History Fusion of spine x3 (lumbar), removal of previous hardware, L2-L4 decompression fusion History of appendectomy History of colonoscopy History of esophagogastroduodenoscopy (EGD) History of repair of rotator cuff R/L Right Shoulder Arthroscopy Sub-Acromial Decompression, RCR, Subacromial Bursectomy, Biceps Tenotomy (09/16/22): Grade III view with MAC #3 > Glidescope#4 with good view, atraumatic, ETT 7.5 + regional at [facility] History of surgical removal of skin lesion History of tonsillectomy and adenoidectomy History of uvulopalatopharyngoplasty secondary to recurrent infection/scar tissue S/P cervical spinal fusion C2-C3 (full rom currently) Spinal cord stimulator status SCS placement (07/11/20): MAC#3, ETT 7.5 at [facility]. No issues per post-op anesthesia progress note. Implanted 2019 Patient aware to bring remote DOS [place] teeth removed Past Anesthesia History Difficult Airway (Right Shoulder Arthroscopy Sub-Acromial Decompression, RCR, Subacromial Bursectomy, Biceps Tenotomy (09/16/22): Grade III view with MAC #3 > Glidescope#4 with good view, atraumatic, ETT 7.5 + regional at [facility]) and No Family Hx of Anesthesia Complications History of PONV No Hx of PONV and No Hx of Motion Sickness Social History Smoking Status: Never smoker Do You Dip or Chew Tobacco: No Hx Alcohol Use: No Hx Substance Use: No substance use type: does not use Review of Systems Patient denies chest pain, shortness of breath, dyspnea on exertion, fever, chills, cough, wheezing, palpitations. Physical Exam Vital Signs BP 146/90 P 64 TEMP 97.9 SP02 99%RA RESP 16 Physical Full cervical extension range of motion. Full TMJ range of motion. TMD > 3.5 finger breaths Mallampati Score II Dentition: intact, upper front Lungs: clear throughout to auscultation Cardiac: regular rate and rhythm, no murmurs noted Spine: normal Carotid arteries: negative bruit Extremities: no LE edema Lab Results Anesthesia Preop Results Results Anesthesia Widget: Na 141 mmol/L (136-145) 04/02/24 K 4.2 mmol/L (3.5-5.1) 04/02/24 Cl 108 mmol/L (98-107) H 04/02/24 CO2 28 mmol/L (21-32) 04/02/24 BUN 10 mg/dl (6-23) 04/02/24 Creat 0.71 mg/dl (0.6-1.4) 04/02/24 Glucose Level 95 mg/dl (70-99(Fasting)) 04/02/24 PT 10.7 Seconds (9.0-12.0) 04/02/24 PTT 29 Seconds (21-31) 04/02/24 INR 1.0 (0.9-1.1) 04/02/24 Urine Color Yellow 04/02/24 Urine Appearance Clear (Clear) 04/02/24 Urine pH 5.5 (4.5-7.5) 04/02/24 Urine Specific [place] 1.005 (1.000-1.030) 04/02/24 Urine Protein Negative (Negative) 04/02/24 Urine Glucose (UA) Negative (Negative) 04/02/24 Urine Ketones Negative (Negative) 04/02/24 Urine Blood Negative (Negative) 04/02/24 Urine Nitrite Negative (Negative) 04/02/24 Urine Bilirubin Negative (Negative) 04/02/24 Urine Urobilinogen Negative (Negative) 04/02/24 Urine Leukocyte Esterase Negative (Negative) 04/02/24 Blood Type O Positive 04/02/24 Antibody Screen NEGATIVE 04/02/24 Testing Laboratory Results 03/26/24 WBC 5.6 H/H 14.4/44.0 PLATELETS 298.0 HGBA1C 6.0% Electrocardiogram Date: 04/02/24 NSR at 62bpm. "Normal ECG" Chest X-Ray Date: 04/02/24 FINDINGS: Lumbar and cervical spinal fusion hardware noted. Postoperative changes of the left glenohumeral joint. Spinal stimulator leads overlie the mid thoracic spine, imaged portions appearing intact. There is no pneumothorax, pleural effusion or airspace consolidation. Heart size is normal. IMPRESSION: No acute process.
[~2024-04-09 10:04] MED LIST changes: -ACETAMINOPHEN 500 MG TAB PO SCH; -CeleBREX 200 MG CAP PO SCH; +DEXAMETHASONE SOD INJ 4 MG/ML VIAL ONE; -GABAPENTIN 900 MG DOSE PO SCH; +GLYCOPYRROLATE 0.2 MG/ML VIAL ONE; +LIDOCAINE 2% 2 ML VIAL/AMP(20MG/ML) INFIL ONE; -LR 15ML/HR IV SCH; +MIDAZOLAM HCL 1 MG/ML 2ML VIAL ONE; +ONDANSETRON INJ 2 MG/ML 2 ML VIAL ONE; +PROPOFOL IV EMULSION 10 MG/ML 20 ML VIAL IV ONE; +ROCURONIUM BROMIDE 10 MG/ML 5 ML VIAL IV ONE; +SUGAMMADEX SODIUM 200 MG/2 ML VIAL IV ONE; -ceFAZolin 2000MG 2,000 MG/15 ML SYR IV SCH; +fentaNYL citrate PF 100 MCG/2 ML VIAL ONE
[2024-04-09] MEDS: LR 60ML/HR IV SCH (10:58)
[2024-04-09] MEDS: LR 15ML/HR IV SCH (10:58)
[2024-04-09] MEDS: GABAPENTIN 300 MG CAP PO SCH (10:59)
[2024-04-09] MEDS: CeleBREX 200 MG CAP PO SCH (10:59)
--- NOTE | 2024-04-09 11:03 | History & Physical Bridge Note ---
Date of Service April 09, 2024 History & Physical Bridge Note I have examined the patient, reviewed the History & Physical and in the interval since the performance of the History & Physical I have noted the following changes of clinical significance: no changes noted
[2024-04-09] MEDS ORDERED: ONDANSETRON INJ 2 MG/ML 2 ML VIAL IV PRN (11:04)
[2024-04-09] MEDS ORDERED: HYDROmorphone INJ 2 MG/ML SYR/VIAL IV PRN (11:04)
[2024-04-09] MEDS ORDERED: ATROPINE SULFATE 0.1 MG/ML 10ML SYR IV PRN (11:04)
[2024-04-09] MEDS ORDERED: ePHEDrine sulfate 50 MG/ML AMP IV PRN (11:04)
--- NOTE | 2024-04-09 11:04 | History & Physical Report ---
Date of Service April 09, 2024 Assessment & Plan (1) Neurogenic claudication due to lumbar spinal stenosis: Plan: L1-L2 decompression, T12-L4 fusion, L2-L4 hardware removal History of Present Illness Chief Complaint: Back and leg pain Primary Care Provider: Eric Cee MD This is a 59-year-old male who presents with chronic persistent back and leg pain and failing since course of nonoperative care is here for surgical invention. Allergies Allergy/AdvReac Type Severity Reaction Status Date / Time acetaminophen AdvReac Mild GI upset Verified 04/09/24 10:29 codeine AdvReac Mild N/V Verified 04/09/24 10:29 oxycodone AdvReac Mild N/V Verified 04/09/24 10:29 lisinopril AdvReac Unknown Cough Verified 04/09/24 10:29 Home Medications Medication Instructions Recorded Confirmed Type lorazepam 0.5 mg tablet 0.5 mg PO HS PRN sleep 06/17/20 04/09/24 History Aspirin Bc Brand 845 mg PO QID 08/26/22 04/09/24 History allopurinol 300 mg tablet 300 mg PO QPM 08/26/22 04/09/24 History losartan 50 mg tablet 50 mg PO QPM 08/26/22 04/09/24 History metformin 500 mg tablet 500 mg PO QPM 03/28/24 04/09/24 History simvastatin 10 mg tablet 10 mg PO PM 03/28/24 04/09/24 History Past Med/Surg History Problem List (Updated 04/09/24 @ 11:03 by Delano Davis, DO) Neurogenic claudication due to lumbar spinal stenosis Encounter for pre-operative examination Medical History Anxiety Brain tumor (benign) Sx 1987 s/p encephalopathy 2/2 bacterial meningitis "Small meningioma" under surveillance by neurology ( neurology, Dr. Pepe) Stable per recent surveillance imaging/no recent issues Cervical stenosis of spinal canal Chronic back pain B/L LE radiculopathy/neuropathy Chronic headaches Claustrophobia Diabetes mellitus, type 2 Foot drop L > R (wears brace PRN) Hx of gout Hypertension Lumbar stenosis with neurogenic claudication Obesity Osteoarthritis Seizure Last seizure (felt secondary to encephalitis/meningitis); grand mal seizures No longer on anticonvulsants, no issues since Surgical History Fusion of spine x3 (lumbar), removal of previous hardware, L2-L4 decompression fusion History of appendectomy History of colonoscopy History of esophagogastroduodenoscopy (EGD) History of repair of rotator cuff R/L Right Shoulder Arthroscopy Sub-Acromial Decompression, RCR, Subacromial Bursectomy, Biceps Tenotomy (09/16/22): Grade III view with MAC #3 > Glidescope#4 with good view, atraumatic, ETT 7.5 + regional at [facility] History of surgical removal of skin lesion History of tonsillectomy and adenoidectomy History of uvulopalatopharyngoplasty secondary to recurrent infection/scar tissue S/P cervical spinal fusion C2-C3 (full rom currently) Spinal cord stimulator status SCS placement (07/11/20): MAC#3, ETT 7.5 at [facility]. No issues per post-op anesthesia progress note. Implanted 2019 Patient aware to bring remote DOS [place] teeth removed Family History Other No family history of adverse response to anesthesia Social History Smoking Status: Never smoker Second Hand Exposure: No; Do You Dip or Chew Tobacco: No; Tobacco Cessation Education Requested by Patient: No Hx Alcohol Use: No Hx Substance Use: No Preferred Language: Amharic Communication Ability: Effective Communication Ability Comment: REHANA AIDES-TINNITUS Staff Internist Office Based Only Required: No Beliefs That Will Affect Care: None marital status: Current Living Situation: Spouse Other Information That Helps Us Care for You: No Feels Safe at Home: Yes Safety Concerns: Feels Safe At This Time Assistive Devices: Cane and Hearing Aid - Bilateral Physical Exam Physical Exam: Patient is alert and oriented heart regular in rhythm Lungs clear
[2024-04-09] MEDS: ceFAZolin 2000MG 2,000 MG/15 ML SYR IV SCH ×2 (11:27→20:12)
[2024-04-09] MEDS ORDERED: KETAMINE HCL 10MG/ML SYR ONE (11:36)
[2024-04-09] MEDS: BUPIVACAINE/EPINEPHRINE 0.25% 1:200,000 30 ML VIAL ONE (11:55)
[2024-04-09] MEDS ORDERED: ePHEDrine sulfate 50 MG/ML AMP ONE (12:21)
[2024-04-09] MEDS ORDERED: ePHEDrine sulfate 50 MG/5 ML SYR ONE (12:21)
[2024-04-09] MEDS: FLOSEAL HEMOSTATIC MATRIX 10ML TOP ONE (13:00)
[2024-04-09] MEDS ORDERED: fentaNYL citrate PF 100 MCG/2 ML VIAL ONE (13:03)
[2024-04-09] MEDS: ceFAZolin 330 MG/ML 1 GM VIAL ONE (13:13)
--- NOTE | 2024-04-09 13:24 | Operative Report ---
Post Operative Report Pre & Post Diagnosis Operation Date: 04/09/24 11:25 Pre-Op Diagnosis: Neurogenic claudication due to lumbar spinal stenosis Post-Op Diagnosis: Neurogenic claudication due to lumbar spinal stenosis I identified the patient and participated in the time-out.: Yes Procedure Operation Date: 04/09/24 11:25 Actual Procedures #1 removal of posterior instrumentation L2-3 L3-4. #2 exploration of fusion L2- L3 L3-L4. #3 decompression with bilaterally facetectomies and foraminotomies T12-L1 L1-L2. #4 posterior spinal fusion T12-L2. #5 placement posterior instrumentation T12-L2. #6 interbody fusion L1-L2. #7 placement of Spira 10 x 26 mm at L1-L2. #8 placement locally harvested morselized autograft and posterior gutters. #9 placement infuse collagen sponge, with Koros in the posterior lateral gutters and Morpheus bone graft in the interbody space. Surgeon Delano Davis, Brim Pouncing Machine Operator Mary Ann Jones Estimated Blood Loss 250 Findings Consistent with Post-Op Diagnosis Specimens None Indications This is a 59-year-old male known to me the presents problems diagnosis of failed course of nonoperative care is here for surgical invention. Description of Procedure Patient was met with identified informed consent obtained. Patient was then taken to the operative suite underwent patient placed in a prone position on the Rex table on top of the Selvin frame. All bony promises well-padded eyes inspected to ensure no external precipice upon them. This point the thoracolumbar spine was prepped and draped in a sterile fashion. Sharp dissection with the assistance of Bovie cautery to form down to and exposing the lamina and transverse processes of T12 and L1 as well as instrumentation at L2-L3-L4 bilaterally. Then proceeded to move the hardware bilaterally explored the fusion mass between L2-L3 L3-4 noted to be mature and intact. Informed complete laminectomy of L1 with bilateral medial facetectomy and foraminotomies followed by partial laminectomy of T12 with bilateral medial facetectomies addressing all neural compression. Pedicle screws were then placed in T12 L1-L2 bilaterally with assistance of fluoroscopy in the process ximena contoured and placed. By way of a trans foraminal approach on the right a complete discectomy of L1-L2 was performed endplates guided to subcortical bleeding bone and a 10 x 26 mm Spira cage filled with Morpheus bone graft tapped in position. The rods were then locked in final position bilaterally. The transverse processes of T12 L1-L2 burred to subcortical bleeding bone. Infuse collagen sponge, Koros and local autograft placed in the posterior gutters. 15 round ALLAN inserted. The incision was then closed with 1 Vicryl fascia 2-0 Vicryl subcutaneously and 4 Monocryl for final skin closure. Steri-Strips sterile dressing placed. Patient waken taken to PACU in stable condition. Please note spinal cord monitoring visualized at the procedure no changes noted. Lastly Mary Ann Jones was present at the entire procedure and on the patient positioning complex course of the surgery and final skin closure. I attest to the content of the Intraoperative Record and any orders documented therein. Any exceptions are noted below.
[2024-04-09] MEDS: fentaNYL citrate PF 100 MCG/2 ML VIAL IV PRN (14:20)
[2024-04-09] MEDS: HYDROmorphone INJ 1 MG/ML SYRINGE IV PRN (14:42)
--- NOTE | 2024-04-09 14:58 | Anesthesiology Progress Note ---
Date of Service April 09, 2024 Anesthesia Post Procedure Vital Signs Vital Signs: Temp Pulse Pulse Resp BP Pulse Ox O2 Del Method 04/09/24 14:50 36.6 C 75 13 124/76 99 Nasal Cannula 04/09/24 14:40 78 17 127/80 100 Nasal Cannula 04/09/24 14:30 86 13 124/80 94 Room Air 04/09/24 14:20 84 16 119/75 96 Room Air 04/09/24 14:10 81 20 123/70 96 Room Air 04/09/24 14:00 81 16 116/71 100 Oxymask 04/09/24 13:50 76 17 104/67 99 Oxymask 04/09/24 13:44 36.7 C 71 17 104/60 97 Oxymask 04/09/24 10:32 36.7 C 77 20 152/98 H 98 Room Air O2 Flow Rate 04/09/24 14:50 2 04/09/24 14:40 2 04/09/24 14:30 04/09/24 14:20 04/09/24 14:10 04/09/24 14:00 3 04/09/24 13:50 6 04/09/24 13:44 8 04/09/24 10:32 Pain Intensity Medial Back: Pain Intensity: 4 Transfer of Care Handoff Completed per policy Notes Mental Status: alert / awake / arousable Patient Amnestic to Procedure: Yes Nausea / Vomiting: adequately controlled Pain: adequately controlled Airway Patency, RR, SpO2: stable & adequate BP & HR: stable & adequate Hydration State: stable & adequate Anesthetic Complications: no major complications apparent
--- NOTE | 2024-04-09 15:26 | Fluoroscopy Report ---
[place] lumbar spine 2-3V CLINICAL HISTORY: L1-L2 [id number] FUSION WITH HARDWARE REMOVAL COMPARISON STUDY: Lumbar spine radiographs September 16, 2017. FLUOROSCOPY TIME: 26 seconds. bandar Sosa: 15.04 mGy FLUOROSCOPIC IMAGES: 3 FINDINGS: Exact localization is difficult given partial visualization of the lumbar spine. Fluoroscop y was provided during hardware removal and subsequent multilevel decompression and fusion. The hardwa re is intact. No unexpected radiopaque foreign bodies. Spinal stimulator is partially imaged. IMPRESSION: Fluoroscopy provided during hardware removal and subsequent multilevel decompression and fusion. ACT 112: Negative or not required by law. Electronically signed by: Drew Campbell M.D. 04/09/2024 3:24 PM
[2024-04-09] MEDS ORDERED: FAMOTIDINE 20 MG TAB PO PRN (15:57)
[2024-04-09] MEDS ORDERED: NALOXONE HCL 0.4 MG/1 ML VIAL/CARP IV PRN (15:57)
[2024-04-09] MEDS ORDERED: DO NOT ADMINISTER PNEUMOCOCCAL VACCINE PRN (15:57)
[2024-04-09] MEDS ORDERED: diphenhydrAMINE Capsule 25 MG CAP PO PRN (15:57)
[2024-04-09] MEDS ORDERED: ONDANSETRON 4 MG OD TAB PO PRN (15:57)
[2024-04-09] MEDS ORDERED: METOCLOPRAMIDE HCL INJ 5 MG/ML 2 ML VIAL IV PRN (15:57)
[2024-04-09] MEDS ORDERED: SOD PHOSPHATE/SOD BIPHOSPHATE ENEMA 132 ML BTL PR PRN (15:57)
[2024-04-09] MEDS ORDERED: hydrOXYzine HCl 25 MG TAB PO PRN (15:57)
[2024-04-09] MEDS ORDERED: MAGNESIUM HYDROXIDE SUSP 30 ML UDC PO PRN (15:57)
[2024-04-09] MEDS ORDERED: bisacodyL 10 MG SUPP PR PRN (15:57)
[2024-04-09] MEDS ORDERED: PROMETHAZINE HCL 12.5 MG in SODIUM CHLORIDE 0.9% 50 ML IV PRN (15:57)
[2024-04-09] MEDS ORDERED: HYDROmorphone INJ 0.5 MG/0.5 ML SYR IV PRN (15:57)
[2024-04-09] MEDS ORDERED: DO NOT ADMINISTER FLU VACCINE PRN (15:57)
[2024-04-09] MEDS ORDERED: PHARMACY GLYCEMIC MGMT CONSULT PRN (15:57)
[2024-04-09] MEDS ORDERED: ALUMINUM/MAGNESIUM SUSP 30 ML UDC PO PRN (15:57)
[2024-04-09] MEDS ORDERED: LORazepam 0.5 MG in SYRINGE 0.25 ML IV PRN (15:57)
[2024-04-09] MEDS ORDERED: CARBOHYDRATES FOR HYPOGLYCEMIA PO PRN (16:30)
[2024-04-09] MEDS ORDERED: GLUCOSE 40% GEL 15 GM TUBE PO PRN (16:30)
[2024-04-09] MEDS ORDERED: GLUCAGON FOR INJ 1 MG VIAL IM PRN (16:30)
[2024-04-09] MEDS ORDERED: GLUCOSE 10 TAB/TUBE PO PRN (16:30)
[2024-04-09] MEDS ORDERED: DEXTROSE 50% 50 ML SYRINGE IV PRN (16:30)
[2024-04-09] MEDS: LACTATED RINGER'S 1,000 ML IV SCH (16:52)
[2024-04-09] MEDS: ONDANSETRON INJ 2 MG/ML 2 ML VIAL IV PRN (17:20)
[2024-04-09] MEDS: KETOROLAC 30 MG/ML VIAL IV SCH (17:50)
[2024-04-09] MEDS: [UNRECOGNIZED DRUG - OTHER] PO SCH (18:07)
[2024-04-09] MEDS: LANTUS PER UNIT CHARGE SC ONE (18:08)
[2024-04-09] MEDS: INSULIN ASPART PER UNIT CHARGE SC SCH (18:28)
--- NOTE | 2024-04-09 19:09 | Hospitalist Consultation ---
Date of Consultation April 09, 2024 Assessment & Plan (1) Neurogenic claudication due to lumbar spinal stenosis: POD#0 L1-L2 decompression, T12-L4 fusion, L2-L4 hardware removal today with Dr. Davis Activity and wound care orders as per ortho Pain control with bowel regimen PT/OT Monitor H/H for acute blood loss anemia and transfuse blood products PRN EBL 250 cc (2) Hypertension: chronic, stable Continue losartan (3) Diabetes mellitus, type 2: recent HgbA1c 6.0 Hold metformin, utilize NovoLog per protocol while hospitalized (4) Brain tumor (benign): history of meningioma, outpatient follow-up DVT PROPHYLAXIS TEDs/SCDs as per spine Ortho Patient seen in collaboration with Dr. Pedersen. Thank you for this consultation. We will follow the patient with you during their hospital stay. You can reach a member of the [facility] Hospitalist Team 28/03 via the [facility] role in [place] [employer]. (5) Hx of gout: Supervising Physician Co-Signing Physician Notes Pt was seen and examined by myself, Teresa Pedersen MD on the day of service. Care was coordinated with JENI Monroe. 59yoM seen post op after lumbar decompression and fusion with hardware removal. States he's had multiple surgeries over the last decade. Notes pain controlled, denied acute concerns. RRR, breath sounds clear bilaterally. Follow post op hgb Pain control, dvt prophylaxis, pt/ot recs per primary team. Otherwise as above. I spent a total [id number] coordinating, documenting, and providing care for this patient excluding time spent in the performance of separately billed services History of Present Illness Reason for Consultation: Post Op Medical Management Requesting Physician: Dr. Davis Attending Physician: Delano Davis DO History of Present Illness 59-year-old male with PMH HTN, gout, DM type II, HLD, remote history of seizures in the setting of encephalitis, brain meningioma under surveillance, and other problems listed below who is s/p L1-L2 decompression, T12-L4 fusion, L2-L4 hardware removal today with Dr. Davis. History is obtained from the p atient and review of PCP records. postoperative, the patient is doing well. He reports his pain is well-controlled. He denies any numbness, tingling, weakness of the lower extremities. No chest pain or shortness of breath. Denies lightheadedness and dizziness. No abdominal pain or nausea. Rubi catheter is in place draining clear yellow urine. Allergies Allergy/AdvReac Type Severity Reaction Status Date / Time acetaminophen AdvReac Mild GI upset Verified 04/09/24 10:29 codeine AdvReac Mild N/V Verified 04/09/24 10:29 oxycodone AdvReac Mild N/V Verified 04/09/24 10:29 lisinopril AdvReac Unknown Cough Verified 04/09/24 10:29 Home Medications Medication Instructions Recorded Confirmed Type lorazepam 0.5 mg tablet 0.5 mg PO HS PRN sleep 06/17/20 04/09/24 History Aspirin Bc Brand 845 mg PO QID 08/26/22 04/09/24 History allopurinol 300 mg tablet 300 mg PO QPM 08/26/22 04/09/24 History losartan 50 mg tablet 50 mg PO QPM 08/26/22 04/09/24 History metformin 500 mg tablet 500 mg PO QPM 03/28/24 04/09/24 History simvastatin 10 mg tablet 10 mg PO PM 03/28/24 04/09/24 History Patient History Medical History Anxiety Brain tumor (benign) Sx 1987 s/p encephalopathy 2/2 bacterial meningitis "Small meningioma" under surveillance by neurology ( neurology, Dr. Pepe) Stable per recent surveillance imaging/no recent issues Cervical stenosis of spinal canal Chronic back pain B/L LE radiculopathy/neuropathy Chronic headaches Claustrophobia Diabetes mellitus, type 2 Foot drop L > R (wears brace PRN) Hx of gout Hypertension Lumbar stenosis with neurogenic claudication Obesity Osteoarthritis Seizure Last seizure (felt secondary to encephalitis/meningitis); grand mal seizures No longer on anticonvulsants, no issues since Surgical History Fusion of spine x3 (lumbar), removal of previous hardware, L2-L4 decompression fusion History of appendectomy History of colonoscopy History of esophagogastroduodenoscopy (EGD) History of repair of rotator cuff R/L Right Shoulder Arthroscopy Sub-Acromial Decompression, RCR, Subacromial Bursectomy, Biceps Tenotomy (09/16/22): Grade III view with MAC #3 > Glidescope#4 with good view, atraumatic, ETT 7.5 + regional at [facility] History of surgical removal of skin lesion History of tonsillectomy and adenoidectomy History of uvulopalatopharyngoplasty secondary to recurrent infection/scar tissue S/P cervical spinal fusion C2-C3 (full rom currently) Spinal cord stimulator status SCS placement (07/11/20): MAC#3, ETT 7.5 at [facility]. No issues per post-op anesthesia progress note. Implanted 2019 Patient aware to bring remote DOS [place] teeth removed Family History Other No family history of adverse response to anesthesia Social History Smoking Status: Never smoker Second Hand Exposure: No; Do You Dip or Chew Tobacco: No; Tobacco Cessation Education Requested by Patient: No Hx Alcohol Use: No Hx Substance Use: No Preferred Language: Israeli Communication Ability: Effective Communication Ability Comment: BILAT AIDES-TINNITUS Receiving Coordinator Required: No Beliefs That Will Affect Care: None marital status: Current Living Situation: Spouse Other Information That Helps Us Care for You: No Feels Safe at Home: Yes Safety Concerns: Feels Safe At This Time Assistive Devices: Cane and Hearing Aid - Bilateral Review of Systems Review of Systems: ROS per HPI, all other systems reviewed and negative Physical Exam Constitutional: WD/WN, vitals as above no acute distress Eyes: PERRL, conjunctivae normal, anicteric sclerae ENMT: external ear and nose normal, oropharynx normal Respiratory: normal respiratory effort, lungs clear to auscultation Cardiovascular: Rate/Rhythm: regular rate and regular rhythm Vessels: normal peripheral pulses Extremities: no edema Gastrointestinal (Abdomen): normal bowel sounds, soft, nontender, no hepatosplenomegaly Musculoskeletal: no cyanosis or clubbing, extremities motor strength 5/5 s/p back surgery, strength strong and equal BLE, drain in place draining bloody drainage Skin: no rashes, warm and dry Neurologic: PERRL, EOMI, accommodation nl, no face palsy, no dysarthria Psychiatric: A+Ox3, euthymic affect Results & Data Results & Data Vital Signs (Past 12 Hours) Vital Signs Temp Pulse Pulse Resp BP BP Pulse Ox 04/09/24 17:57 36.4 C L 80 18 121/77 97 08/05/24 16:53 36.4 C L 81 18 114/76 95 04/09/24 16:21 36.4 C L 80 18 115/75 96 04/09/24 15:55 36.3 C L 85 18 126/81 94 04/09/24 15:30 82 13 126/82 97 04/09/24 15:15 80 15 126/82 98 04/09/24 15:00 82 14 119/82 99 04/09/24 14:50 36.6 C 75 13 124/76 99 04/09/24 14:40 78 17 127/80 100 04/09/24 14:30 86 13 124/80 94 04/09/24 14:20 84 16 119/75 96 04/09/24 14:10 81 20 123/70 96 04/09/24 14:00 81 16 116/71 100 04/09/24 13:50 76 17 104/67 99 04/09/24 13:44 36.7 C 71 17 104/60 97 04/09/24 10:32 36.7 C 77 20 152/98 H 98 O2 Del Method O2 Flow Rate 04/09/24 17:57 Room Air 04/09/24 16:53 Room Air 04/09/24 16:21 Room Air 04/09/24 15:55 Room Air 04/09/24 15:30 Nasal Cannula 2 04/09/24 15:15 Nasal Cannula 2 04/09/24 15:00 Nasal Cannula 2 04/09/24 14:50 Nasal Cannula 2 04/09/24 14:40 Nasal Cannula 2 04/09/24 14:30 Room Air 04/09/24 14:20 Room Air 04/09/24 14:10 Room Air 04/09/24 14:00 Oxymask 3 04/09/24 13:50 Oxymask 6 04/09/24 13:44 Oxymask 8 04/09/24 10:32 Room Air
[2024-04-09] MEDS: DOCUSATE SODIUM/SENNA 50/8.6MG TAB PO SCH (20:12)
[2024-04-09] MEDS: allopurinoL 300 MG TAB PO SCH (20:12)
[2024-04-09] MEDS: HYDROmorphone INJ 0.5 MG/0.5 ML SYR IV PRN (20:12)
[2024-04-09] MEDS: SIMVASTATIN 10 MG TAB PO SCH (20:12)
[2024-04-09] MEDS: LOSARTAN POTASSIUM 50 MG TAB PO SCH (20:12)
[2024-04-09] MEDS: LORazepam 0.5 MG TAB PO PRN (23:50)
[2024-04-10] MEDS: traMADol HCL 50 MG TABLET PO PRN (01:58)
[2024-04-10] MEDS: INSULIN ASPART PER UNIT CHARGE SC ONE (02:01)
[2024-04-10] MEDS: POLYETHYLENE (MIRALAX) 17 GM PACK PO SCH (05:34)
[2024-04-10 07:10] LABS: Basophils # (auto) 0.03 K/uL (0.00-0.20); Basophils % (auto) 0.3 %; Hematocrit (blood only) 33.3 % (42.0-52.0); Hemoglobin 11.1 g/dl (14.0-18.0); Immature Granulocytes # (auto) 0.05 K/uL (0.01-0.20); Immature Granulocytes % (auto) 0.5 %; Lymphocytes # (auto) 1.15 K/uL (1.20-3.40); Lymphocytes % (auto) 10.7 %; Mean Corpuscular Hemoglobin 29.1 pg (25.0-34.0); Mean Corpuscular Hgb Conc 33.3 g/dL (32.0-36.0); Mean Corpuscular Volume 87.4 fL (80.0-100.0); Mean Platelet Volume 9.3 fL (9.4-12.4); Monocytes # (auto) 1.24 K/uL (0.11-0.59); Monocytes % (auto) 11.5 %; Neutrophils # (auto) 8.29 K/uL (1.40-6.50); Platelet Count 263 K/uL (130-400); RDW Coefficient of Variation 13.2 % (11.5-14.5); RDW Standard Deviation 41.8 fL (36.4-46.3); Red Blood Count 3.81 M/uL (4.70-6.10); White Blood Count 10.76 K/ul (4.8-10.8)
[2024-04-10 07:35] LABS: BUN Creatinine Ratio 13.3 (10-20); Calcium 8.5 mg/dl (8.6-10.3); Creatinine Clr Calc Pharmacy 123.9 ml/min; Est GFR (African American) 113.2 ml/min; Est GFR (Non-African American) 97.7 ml/min; Potassium 4.4 mmol/L (3.5-5.1)
[2024-04-10] MEDS: dexAMETHasone 6 MG in SYRINGE 0 ML IV SCH (08:45)
--- NOTE | 2024-04-10 09:37 | Hospitalist Progress Note ---
Date of Service April 10, 2024 Assessment & Plan (1) Neurogenic claudication due to lumbar spinal stenosis: (2) Acute blood loss anemia: Plan: POD#1 s/p L1-L2 decompression, T12-L4 fusion & L2-L4 hardware removal with Dr. Davis. EBL: 250 mL & Hgb stable at 11.1 today [Pre-Op Hgb 15.0 on 09/01/22]. Per ortho for pain control, wound care, anticoagulation and activities. Continue incentive spirometry, PT/OT when appropriate as per ortho team. Monitor H/H for acute blood loss anemia and transfuse blood products PRN. (3) Hypertension: Plan: BP has remained stable post-operatively, continue losartan. (4) Diabetes mellitus, type 2: Plan: Recent Hgb A1c 6.0 per chart review; MANAGER RN metformin held, continue SSI regimen while admitted. (5) Brain tumor (benign): Plan: History of meningioma, [facility] 11/2023 with no changes in frontal mass, Q2year scans. We will continue to follow the patient with you during their hospital stay. You can reach a member of the [facility] Hospitalist Team 28/03 via the [place] Hospitalist role in [place] Text. DVT Prophylaxis: SCDs/TEDs - As per primary team. Code Status: FULL CODE PCP: Eric Cee MD Disposition: Admitted in Med/Surg - discharge planning as per primary orthopedic surgery team. Patient seen in collaboration with Dr. Dixon. Please see addendum. I spent a total of 35 minutes coordinating, documenting, and providing care for this patient excluding time spent in the performance of separately billed services. This included personally reviewing all current laboratories and imaging studies, medical reconciliation, outpatient chart review and discussion with specialists. This chart was completed in part utilizing Speech Voice Recognition Software. Grammatical errors, random word insertions, pronoun errors, and incomplete sentences are an occasional consequence of this system due to software limitations, ambient noise, and hardware issues. Any formal questions or concerns about the content, text, or information contained within the body of this dictation should be directly addressed to the provider for clarification. Admission and Anticipated Discharge Date Admission Date: April 09, 2024 Supervising Physician Co-Signing Physician Notes I have seen and discussed the case with the collaborating advanced practitioner. I agree with the above PN. I have reviewed and confirmed the patients medical history, the findings on physical examination, and the patients diagnosis and treatment plan with Sherrie NICOLE and agree with the information documented. Mr. Zuleta is POD 1 POD#1 s/p L1-L2 decompression, T12-L4 fusion & L2-L4 hardware removal with Dr. Davis. Doing well and independent with PT this am ALLAN drain with sanguinous output #Acute blood loss anemia, 2/2 post op losses Preop Hgb 15, down to 11.1 this am, likely combo of dilutional and losses Repeat in am Transfuse <7 Anemia labs for optimization rest of plan as above I spent a total of 15 minutes coordinating, documenting, and providing care for this patient excluding time spent in the performance of separately billed services. All of the aforementioned completed outside of collaborating with the assigned advanced practitioner for a full treatment plan. I have reviewed the advanced practitioner's documentation, and I agree with, and take responsibility for the plan of care Subjective Patient seen and examined at bedside in room N383-2. Reports that he is feeling well this morning; He is having some discomfort, but his pain is being well managed. He had his Rubi catheter removed earlier this morning. Denies any chest pain, SOB, abdominal pain or issues with urination. He is up and moving with assistance from nursing staff and will be seen by PT later on today. Has yet to have a BM since being post-op, however he received a dose of Miralax this morning. Review of Systems Review of Systems: At least ten systems reviewed and negative, except as noted in the HPI. Physical Exam Physical Exam: General: WD/WN, vitals as above, NAD, sitting up in chair at bedside, pleasant, conversing appropriately. A+Ox3, euthymic affect. HEENT: Normocephalic, atraumatic. PERRL, conjunctivae normal, anicteric sclerae. External ear and nose normal, oropharynx normal. Respiratory: Normal respiratory effort, lungs clear to auscultation, no wheeze, rales, rhonchi. No accessory muscle use. Cardiovascular: Regular rate, rhythm, no murmur, normal peripheral pulses, no BLE edema. Vessels: No JVD. Abdomen/GI: Normal bowel sounds, soft, nontender, no hepatosplenomegaly. Extremities/Musculoskeletal: No cyanosis or clubbing, extremities motor strength not formally test, moves all extremities. Neurologic: EOMI, accommodation nl, no face palsy, no dysarthria, CN's II-XI not formally tested but appear grossly intact bilaterally. Skin: No rashes, normal color, warm/dry. ALLAN drain x 1 intact and draining sanguineous fluid. Surgical site not directly visualized - bandaging intact. Results & Data Results & Data Vital Signs (Past 12 Hours) Vital Signs Temp Pulse Resp BP BP Pulse Ox O2 Del Method 04/10/24 07:14 36.6 C 94 H 19 146/78 H 99 Room Air 04/10/24 04:03 36.6 C 96 H 18 121/77 97 Room Air 04/09/24 22:58 36.4 C L 95 H 18 116/74 92 Room Air Laboratory Results Short CBC 04/10/24 Range/Units 06:07 WBC 10.76 (4.8-10.8) K/ul Hgb 11.1 L (14.0-18.0) g/dl Hct 33.3 L (42.0-52.0) % Plt Count 263 (130-400) K/uL BMP 04/10/24 06:07 Sodium 139 Potassium 4.4 Chloride 104 Carbon Dioxide 30 BUN 11 Creatinine 0.83 Glucose 137 H Calcium 8.5 L Diagnostic Findings Lumbar Spine X-Ray 04/09/24 11:25 FL lumbar spine 2-3V CLINICAL HISTORY: L1-L2 [id number] FUSION WITH HARDWARE REMOVAL COMPARISON STUDY: Lumbar spine radiographs September 16, 2017. FLUOROSCOPY TIME: 26 seconds. Ka, r: 15.04 mGy FLUOROSCOPIC IMAGES: 3 FINDINGS: Exact localization is difficult given partial visualization of the lumbar spine. Fluoroscopy was provided during hardware removal and subsequent multilevel decompression and fusion. The hardware is intact. No unexpected radiopaque foreign bodies. Spinal stimulator is partially imaged. IMPRESSION: Fluoroscopy provided during hardware removal and subsequent mul tilevel decompression and fusion. ACT 112: Negative or not required by law. Electronically signed by: Drew Campbell M.D. 04/09/2024 3:24 PM Medications Administered Allopurinol (Allopurinol 300 Mg Tab) 300 mg PO QPM SONIYA Stop: 05/09/24 20:59 Last Admin: 04/09/24 20:12 Dose: 300 mg Documented By: BRIAN Hydromorphone HCl (Hydromorphone Inj 0.5 Mg/0.5 Ml Syr) 0.5 - 1 mg IV Q3H PRN PRN Reason: SEE INSTRUCTIONS PAIN Stop: 04/23/24 16:07 Last Admin: 04/10/24 04:25 Dose: 0.5 mg Documented By: Admin: 04/09/24 20:12 Dose: 1 mg Documented By: BRIAN Dexamethasone 6 mg/ Syringe 1.5 mls @ 1 mls/min IV DAILY [facility] Stop: 04/12/24 09:02 Last Admin: 04/10/24 08:45 Dose: 1 mls/min Documented By: APPLE Insulin Aspart (Insulin Aspart Per Unit Charge) 0 units SC ACHS [facility] Stop: 05/09/24 16:29 Last Admin: 04/10/24 08:52 Dose: 2 units Documented By: APPLE Co-signed By: LUCRETIA Admin: 04/09/24 20:30 Dose: 1 units Documented By: BRIAN Co-signed By: USAMA Admin: 04/09/24 18:28 Dose: 9 units Documented By: APPLE Co-signed By: LUCRETIA Ketorolac Tromethamine (Ketorolac 30 Mg/Ml Vial) 30 mg IV Q6 [facility] Stop: 04/10/24 12:01 Last Admin: 04/10/24 05:34 Dose: 30 mg Documented By: Admin: 04/09/24 23:50 Dose: 30 mg Documented By: Admin: 04/09/24 17:50 Dose: 30 mg Documented By: APPLE Lorazepam (Lorazepam 0.5 Mg Tab) 0.5 mg PO Q8H PRN PRN Reason: Sedation/Anxiety Stop: 05/09/24 15:56 Last Admin: 04/09/24 23:50 Dose: 0.5 mg Documented By: BRIAN Losartan Potassium (Losartan Potassium 50 Mg Tab) 50 mg PO QPM [facility] Stop: 05/09/24 20:59 Last Admin: 04/09/24 20:12 Dose: 50 mg Documented By: BRIAN Ondansetron HCl (Ondansetron Inj 2 Mg/Ml 2 Ml Vial) 4 mg IV Q6H PRN PRN Reason: Nausea &/or Vomiting Stop: 05/09/24 15:56 Last Admin: 04/09/24 17:20 Dose: 4 mg Documented By: LUCRETIA Polyethylene Glycol (Polyethylene (Miralax) 17 Gm Pack) 17 gm PO Q6 [facility] Stop: 05/10/24 05:59 Last Admin: 04/10/24 05:34 Dose: 17 gm Documented By: BRIAN Senna/Docusate Sodium (Docusate Sodium/Senna 50/8.6mg Tab) 2 tab PO HS [facility]ONIYA Stop: 05/09/24 20:59 Last Admin: 04/09/24 20:12 Dose: 2 tab Documented By: BRIAN Simvastatin (Simvastatin 10 Mg Tab) 10 mg PO PM [facility] Stop: 05/09/24 20:59 Last Admin: 04/09/24 20:12 Dose: 10 mg Documented By: BRIAN Tramadol HCl (Tramadol Hcl 50 Mg Tablet) 50 - 100 mg PO Q4H PRN PRN Reason: Moderate-Severe pain & Pre PT Stop: 05/09/24 15:56 Last Admin: 04/10/24 01:58 Dose: 100 mg Documented By: BRIAN Discontinued Medications Bupivacaine HCl/Epinephrine Bitart (Bupivacaine/Epinephrine 0.25% 1:200,000 30 Ml Vial) Confirm Administered Dose 30 ml .ROUTE .STK-MED ONE Stop: 04/09/24 11:21 Last Admin: 04/09/24 11:55 Dose: 30 ml Documented By: DALILA Cefazolin Sodium (Cefazolin 330 Mg/Ml 1 Gm Vial) Confirm Administered Dose 990 mg .ROUTE .STK-MED ONE Stop: 04/09/24 11:21 Last Admin: 04/09/24 13:13 Dose: 990 mg Documented By: DALILA Celecoxib (Celebrex 200 Mg Cap) 200 mg PO PREOP [facility] Stop: 04/09/24 18:00 Last Admin: 04/09/24 10:59 Dose: 200 mg Documented By: MARSHA Fentanyl Citrate (Fentanyl Citrate Pf 100 Mcg/2 Ml Vial) 25 mcg IV Q5M PRN PRN Reason: PACU Use Only-Pain Stop: 04/09/24 19:04 Last Admin: 04/09/24 14:35 Dose: 25 mcg Documented By: Admin: 04/09/24 14:30 Dose: 25 mcg Documented By: Admin: 04/09/24 14:25 Dose: 25 mcg Documented By: Admin: 04/09/24 14:20 Dose: 25 mcg Documented By: ALAN Gabapentin (Gabapentin 300 Mg Cap) 300 mg PO PREOP SONIYA Stop: 04/09/24 18:00 Last Admin: 04/09/24 10:59 Dose: 300 mg Documented By: MARSHA Hydromorphone HCl (Hydromorphone Inj 1 Mg/Ml Syringe) 0.25 mg IV Q5M PRN PRN Reason: PACU Use Only-Pain Stop: 04/09/24 19:04 Last Admin: 04/09/24 14:48 Dose: 0.25 mg Documented By: Admin: 04/09/24 14:42 Dose: 0.25 mg Documented By: ALAN Lactated Ringer's (Lr) 1,000 mls @ 15 mls/hr IV .Q24H [facility] Stop: 04/10/24 05:59 Last Infusion: 04/09/24 11:27 Dose: Infused Documented By: Admin: 04/09/24 10:58 Dose: 15 mls/hr Documented By: MARSHA Lactated Ringer's (Lr) 1,000 mls @ 60 mls/hr IV .[id number] [facility] Stop: 04/09/24 22:39 Last Admin: 04/09/24 10:58 Dose: Not Given Documented By: MARSHA Cefazolin Sodium (Ancef 2000mg) 2,000 mg in 15 mls @ 3.75 mls/min IV PREOP SONIYA; Protocol Stop: 04/09/24 18:00 Last Admin: 04/09/24 11:27 Dose: 3.75 mls/min Documented By: [id number] Lactated Ringer's (Lr) 1,000 mls @ 150 mls/hr IV .[id number] [facility]ON[facility]YA Stop: 05/09/24 15:56 Last Admin: 04/10/24 05:09 Dose: Not Given Documented By: Infusion: 04/10/24 05:09 Dose: Infused Documented By: Admin: 04/10/24 01:58 Dose: 150 mls/hr Documented By: Infusion: 04/10/24 01:58 Dose: Infused Documented By: Admin: 04/09/24 19:31 Dose: 150 mls/hr Documented By: Infusion: 04/09/24 19:31 Dose: Infused Documented By: Admin: 04/09/24 16:52 Dose: 150 mls/hr Documented By: LUCRETIA Cefazolin Sodium (Ancef 2000mg) 2,000 mg in 15 mls @ 3.75 mls/min IV Q8H [facility]; Protocol Stop: 04/10/24 04:03 Last Admin: 04/10/24 04:20 Dose: 3.75 mls/min Documented By: Admin: 04/09/24 20:12 Dose: 3.75 mls/min Documented By: BRIAN Insulin Aspart (Insulin Aspart Per Unit Charge) 0 units SC ONE ONE Stop: 04/10/24 02:01 Last Admin: 04/10/24 02:01 Dose: Not Given Documented By: BRINA Co-signed By: USAMA Insulin Glargine (Lantus Per Unit Charge) 18 units SC ONE ONE Stop: 04/09/24 17:01 Last Admin: 04/09/24 18:08 Dose: Not Given Documented By: LUCRETIA Miscellaneous ( Floseal Hemostatic Matrix 10ml) 30 ml TOP ONCE ONE Stop: 04/09/24 12:40 Last Admin: 04/09/24 13:00 Dose: 22 ml Documented By: DALILA Non-Formulary Medication (Aspirin Bc Brand) 845 mg PO QID [facility] Stop: 05/09/24 16:59 Last Admin: 04/09/24 18:07 Dose: Not Given Documented By: LUCRETIA (3) Hypertension Hypertension type: unspecified Qualified Code(s): I10 - Essential (primary) hypertension (4) Diabetes mellitus, type 2 Diabetes mellitus complication status: without complication Diabetes mellitus mcc insulin use: without superintendent [employer] use Qualified Code(s): E11.9 - Type 2 diabetes mellitus without complications (5) Brain tumor (benign) Benign neoplasm of brain location: unspecified brain region Qualified Code (s): D33.2 - Benign neoplasm of brain, unspecified
--- NOTE | 2024-04-10 09:51 | Orthopedic Progress Note ---
Date of Service April 10, 2024 Assessment & Plan (1) Neurogenic claudication due to lumbar spinal stenosis: Plan: At this time we will continue physical therapy monitor his ALLAN output anticipate discharge home in the next few days. Admission and Anticipated Discharge Date Admission Date: April 09, 2024 Subjective Back pain is controlled leg symptoms markedly improved Physical Exam Physical Exam: On exam patient is up and ambulating. He has good strength testing. Results & Data Vital Signs (Past 12 Hours) Vital Signs Temp Pulse Resp BP BP Pulse Ox O2 Del Method 04/10/24 07:14 36.6 C 94 H 19 146/78 H 99 Room Air 04/10/24 04:03 36.6 C 96 H 18 121/77 97 Room Air 04/09/24 22:58 36.4 C L 95 H 18 116/74 92 Room Air
[2024-04-11 06:35] LABS: Hematocrit (blood only) 30.7 % (42.0-52.0); Hemoglobin 10.2 g/dl (14.0-18.0); Mean Corpuscular Hemoglobin 29.1 pg (25.0-34.0); Mean Corpuscular Hgb Conc 33.2 g/dL (32.0-36.0); Mean Corpuscular Volume 87.7 fL (80.0-100.0); Mean Platelet Volume 9.1 fL (9.4-12.4); Platelet Count 241 K/uL (130-400); RDW Coefficient of Variation 13.2 % (11.5-14.5); White Blood Count 9.56 K/ul (4.8-10.8)
[2024-04-11] MEDS ORDERED: PROMETHAZINE 12.5 MG/50.5 ML BAG IV PRN (07:00)
[2024-04-11 07:12] LABS: Ferritin 97.5 ng/ml (8-388)
[2024-04-11 07:52] LABS: Folate (Folic Acid),Ser orPlas 7.61 ng/ml (>5.38)
[2024-04-11] MEDS: FERROUS SULFATE 325 MG TAB PO SCH (08:51)
--- NOTE | 2024-04-11 10:51 | Orthopedic Progress Note ---
Date of Service April 11, 2024 Assessment & Plan (1) Neurogenic claudication due to lumbar spinal stenosis: Plan: At this point we will continue physical therapy monitor his ALLAN output anticipate discharge home in the next few days. Admission and Anticipated Discharge Date Admission Date: April 09, 2024 Subjective Patient's back pain is controlled leg pain improved Physical Exam Physical Exam: Patient is up and ambulating. Discussed ride to testing. Results & Data Vital Signs (Past 12 Hours) Vital Signs Temp Pulse Resp BP Pulse Ox O2 Del Method 04/11/24 07:34 36.6 C 92 H 16 129/79 97 Room Air
[2024-04-11] MEDS: HYDROCODONE/ACETAMOPHEN 5/325MG TAB PO PRN (11:22)
--- NOTE | 2024-04-11 12:16 | Hospitalist Progress Note ---
<Statement entered by Juan Cid, DO - 04/11/24 13:33> I have seen and examined the patient and have discussed the case with the provider above. I have reviewed the advanced practitioner's documentation, and I agree with, and take responsibility for that plan of care. 8 minutes spent at bedside with patient and . He is doing well. Pain is controlled. Eager to get home. Continue postoperative care per attending Further plan of care as outlined below Date of Service April 11, 2024 Assessment & Plan (1) Neurogenic claudication due to lumbar spinal stenosis: (2) Acute blood loss anemia: Plan: POD#2 s/p L1-L2 decompression, T12-L4 fusion & L2-L4 hardware removal with Dr. Davis on 04/09. EBL: 250 mL & Pre-Op Hgb 15.0 [09/01/22]. Hgb downtrended to 10.2 today (04/11). Anemia work-up revealed iron and B12 deficiencies. Will start patient on iron and B12 supplementation. Continue to monitor H/H for acute blood loss anemia and transfuse blood products PRN. Per ortho for pain control, wound care, anticoagulation and activities. Continue incentive spirometry, PT/OT when appropriate as per ortho team. Patient's ALLAN drain is still producing a good amount of output, will continue to monitor closely. Goal is to have the ALLAN drain removed either tomorrow or Tuesday prior to discharge. If the ALLAN drain is not removed prior to discharge, it will be removed in the outpatient setting by ortho spine. (3) Hypertension: Plan: BP has remained stable post-operatively, continue losartan. (4) Diabetes mellitus, type 2: Plan: Recent Hgb A1c 6.0 per chart review; [employer] metformin held, continue SSI regimen while admitted. (5) Brain tumor (benign): Plan: History of meningioma, [facility]/2023 with no changes in frontal mass, Q2year scans. We will continue to follow the patient with you during their hospital stay. You can reach a member of the [facility] Hospitalist Team 28/03 via the [facility] Hospitalist role in [place] Text. DVT Prophylaxis: SCDs/TEDs - As per primary team. Code Status: FULL CODE PCP: Eric Cee MD Disposition: Admitted in Med/Surg - discharge planning as per primary orthopedic surgery team. Patient seen in collaboration with Dr. Cid. Please see addendum. I spent a total of 25 minutes coordinating, documenting, and providing care for this patient excluding time spent in the performance of separately billed services. This included personally reviewing all current laboratories and imaging studies, medical reconciliation, outpatient chart review and discussion with specialists. This chart was completed in part utilizing Speech Voice Recognition Software. Grammatical errors, random word insertions, pronoun errors, and incomplete sentences are an occasional consequence of this system due to software limitations, ambient noise, and hardware issues. Any formal questions or concerns about the content, text, or information contained within the body of this dictation should be directly addressed to the provider for clarification. Admission and Anticipated Discharge Date Admission Date: April 09, 2024 Subjective Patient seen and examined at bedside in room N383-2. Patient reports good pain control, states he feels pretty well overall. He was already up and moving without issue when I entered the room. His was at bedside this morning. Patient is expected to be discharged possibly tomorrow or Tuesday. His ALLAN drain output has been putting out some increased input. Therefore, ortho spine is waiting to pull out the ALLAN drain until the output lessens. Review of Systems Review of Systems: At least ten systems reviewed and negative, except as noted in the HPI. Physical Exam Physical Exam: General: WD/WN, vitals as above, NAD, standing at bedside, pleasant, conversing appropriately. A+Ox3, euthymic affect. Patient's present in the room. HEENT: Normocephalic, atraumatic. PERRL, conjunctivae normal, anicteric sclerae. External ear and nose normal, oropharynx normal. Respiratory: Normal respiratory effort, lungs clear to auscultation, no wheeze, rales, rhonchi. No accessory muscle use. Cardiovascular: Regular rate, rhythm, no murmur, normal peripheral pulses, no BLE edema. Vessels: No JVD. Abdomen/GI: Normal bowel sounds, soft, nontender, no hepatosplenomegaly. Extremities/Musculoskeletal: No cyanosis or clubbing, extremities motor strength not formally tested, moves all extremities. Neurologic: EOMI, accommodation nl, no face palsy, no dysarthria, CN's II-XI not formally tested but appear grossly intact bilaterally. Skin: No rashes, normal color, warm/dry. ALLAN drain x 1 intact and draining sanguineous output. Surgical site bandaging dry and intact. Results & Data Results & Data Vital Signs (Past 12 Hours) Vital Signs Temp Pulse Resp BP Pulse Ox O2 Del Method 04/11/24 07:34 36.6 C 92 H 16 129/79 97 Room Air Laboratory Results Short CBC 04/11/24 Range/Units 06:00 WBC 9.56 (4.8-10.8) K/ul Hgb 10.2 L (14.0-18.0) g/dl Hct 30.7 L (42.0-52.0) % Plt Count 241 (130-400) K/uL Diagnostic Findings Lumbar Spine X-Ray 04/09/24 11:25 FL lumbar spine 2-3V CLINICAL HISTORY: L1-L2 [id number] FUSION WITH HARDWARE REMOVAL COMPARISON STUDY: Lumbar spine radiographs September 16, 2017. FLUOROSCOPY TIME: 26 seconds. Ka, r: 15.04 mGy FLUOROSCOPIC IMAGES: 3 FINDINGS: Exact localization is difficult given partial visualization of the lumbar spine. Fluoroscopy was provided during hardware removal and subsequent multilevel decompression and fusion. The hardware is intact. No unexpected radiopaque foreign bodies. Spinal stimulator is partially imaged. IMPRESSION: Fluoroscopy provided during hardware removal and subsequent multilevel decompression and fusion. ACT 112: Negative or not required by law. Electronically signed by: Drew Campbell M.D. 04/09/2024 3:24 PM Medications Administered Hydrocodone Bitart/Acetaminophen (Hydrocodone/Acetamophen 5/325mg Tab) 1 - 2 tab PO Q4H PRN PRN Reason: Pain & Pre PT Stop: 04/23/24 15:56 Last Admin: 04/11/24 11:22 Dose: 1 tab Documented By: LUCRETIA Allopurinol (Allopurinol 300 Mg Tab) 300 mg PO QPM [facility] Stop: 05/09/24 20:59 Last Admin: 04/10/24 20:06 Dose: 300 mg Documented By: Admin: 04/09/24 20:12 Dose: 300 mg Documented By: BRIAN Ferrous Sulfate (Ferrous Sulfate 325 Mg Tab) 325 mg PO QAM SONIYA Stop: 05/11/24 08:59 Last Admin: 04/11/24 08:51 Dose: 325 mg Documented By: APPLE Hydromorphone HCl (Hydromorphone Inj 0.5 Mg/0.5 Ml Syr) 0.5 - 1 mg IV Q3H PRN PRN Reason: SEE INSTRUCTIONS PAIN Stop: 04/23/24 16:07 Last Admin: 04/10/24 04:25 Dose: 0.5 mg Documented By: Admin: 04/09/24 20:12 Dose: 1 mg Documented By: BRIAN Dexamethasone 6 mg/ Syringe 1.5 mls @ 1 mls/min IV DAILY SONIYA Stop: 04/12/24 09:02 Last Admin: 04/11/24 08:53 Dose: 1 mls/min Documented By: Admin: 04/10/24 08:45 Dose: 1 mls/min Documented By: APPLE Insulin Aspart (Insulin Aspart Per Unit Charge) 0 units SC ACHS SONIYA Stop: 05/09/24 16:29 Last Admin: 04/11/24 12:32 Dose: 5 units Documented By: LUCRETIA Co-signed By: APPLE Admin: 04/11/24 09:00 Dose: Not Given Documented By: Admin: 04/10/24 21:03 Dose: Not Given Documented By: BRIAN Co-signed By: RACHEL Admin: 04/10/24 18:05 Dose: 5 units Documented By: APPLE Co-signed By: LUCRETIA Admin: 04/10/24 12:31 Dose: 5 units Documented By: APPLE Co-signed By: LUCRETIA Admin: 04/10/24 08:52 Dose: 2 units Documented By: APPLE Co-signed By: LUCRETIA Admin: 04/09/24 20:30 Dose: 1 units Documented By: BRIAN Co-signed By: USAMA Admin: 04/09/24 18:28 Dose: 9 units Documented By: APPLE Co-signed By: LUCRETIA Lorazepam (Lorazepam 0.5 Mg Tab) 0.5 mg PO Q8H PRN PRN Reason: Sedation/Anxiety Stop: 05/09/24 15:56 Last Admin: 04/10/24 21:01 Dose: 0.5 mg Documented By: Admin: 04/09/24 23:50 Dose: 0.5 mg Documented By: BRIAN Losartan Potassium (Losartan Potassium 50 Mg Tab) 50 mg PO QPM SONIYA Stop: 05/09/24 20:59 Last Admin: 04/10/24 20:06 Dose: 50 mg Documented By: Admin: 04/09/24 20:12 Dose: 50 mg Documented By: BRIAN Ondansetron HCl (Ondansetron Inj 2 Mg/Ml 2 Ml Vial) 4 mg IV Q6H PRN PRN Reason: Nausea &/or Vomiting Stop: 05/09/24 15:56 Last Admin: 04/09/24 17:20 Dose: 4 mg Documented By: LUCRETIA Polyethylene Glycol (Polyethylene (Miralax) 17 Gm Pack) 17 gm PO Q6 SONIYA Stop: 05/10/24 05:59 Last Admin: 04/11/24 12:32 Dose: 17 gm Documented By: Admin: 04/11/24 05:24 Dose: 17 gm Documented By: Admin: 04/11/24 00:06 Dose: Not Given Documented By: Admin: 04/10/24 18:04 Dose: 17 gm Documented By: Admin: 04/10/24 12:25 Dose: 17 gm Documented By: Admin: 04/10/24 05:34 Dose: 17 gm Documented By: BRIAN Senna/Docusate Sodium (Docusate Sodium/Senna 50/8.6mg Tab) 2 tab PO HS SONIYA Stop: 05/09/24 20:59 Last Admin: 04/10/24 20:06 Dose: 2 tab Documented By: Admin: 04/09/24 20:12 Dose: 2 tab Documented By: BRIAN Simvastatin (Simvastatin 10 Mg Tab) 10 mg PO PM SONIYA Stop: 05/09/24 20:59 Last Admin: 04/10/24 20:06 Dose: 10 mg Documented By: Admin: 04/09/24 20:12 Dose: 10 mg Documented By: BRIAN Tramadol HCl (Tramadol Hcl 50 Mg Tablet) 50 - 100 mg PO Q4H PRN PRN Reason: Moderate-Severe pain & Pre PT Stop: 05/09/24 15:56 Last Admin: 04/11/24 03:06 Dose: 100 mg Documented By: Admin: 04/10/24 01:58 Dose: 100 mg Documented By: BRIAN Discontinued Medications Bupivacaine HCl/Epinephrine Bitart (Bupivacaine/Epinephrine 0.25% 1:200,000 30 Ml Vial) Confirm Administered Dose 30 ml .ROUTE .STK-MED ONE Stop: 04/09/24 11:21 Last Admin: 04/09/24 11:55 Dose: 30 ml Documented By: DALILA Cefazolin Sodium (Cefazolin 330 Mg/Ml 1 Gm Vial) Confirm Administered Dose 990 mg .ROUTE .STK-MED ONE Stop: 04/09/24 11:21 Last Admin: 04/09/24 13:13 Dose: 990 mg Documented By: DALILA Celecoxib (Celebrex 200 Mg Cap) 200 mg PO PREOP SONIYA Stop: 04/09/24 18:00 Last Admin: 04/09/24 10:59 Dose: 200 mg Documented By: MARSHA Fentanyl Citrate (Fentanyl Citrate Pf 100 Mcg/2 Ml Vial) 25 mcg IV Q5M PRN PRN Reason: PACU Use Only-Pain Stop: 04/09/24 19:04 Last Admin: 04/09/24 14:35 Dose: 25 mcg Documented By: Admin: 04/09/24 14:30 Dose: 25 mcg Documented By: Admin: 04/09/24 14:25 Dose: 25 mcg Documented By: Admin: 04/09/24 14:20 Dose: 25 mcg Documented By: ALAN Gabapentin (Gabapentin 300 Mg Cap) 300 mg PO PREOP SONIYA Stop: 04/09/24 18:00 Last Admin: 04/09/24 10:59 Dose: 300 mg Documented By: MARSHA Hydromorphone HCl (Hydromorphone Inj 1 Mg/Ml Syringe) 0.25 mg IV Q5M PRN PRN Reason: PACU Use Only-Pain Stop: 04/09/24 19:04 Last Admin: 04/09/24 14:48 Dose: 0.25 mg Documented By: Admin: 04/09/24 14:42 Dose: 0.25 mg Documented By: ALAN Lactated Ringer's (Lr) 1,000 mls @ 15 mls/hr IV .Q24H SONIYA Stop: 04/10/24 05:59 Last Infusion: 04/09/24 11:27 Dose: Infused Documented By: Admin: 04/09/24 10:58 Dose: 15 mls/hr Documented By: MARSHA Lactated Ringer's (Lr) 1,000 mls @ 60 mls/hr IV .[id number] SONIYA Stop: 04/09/24 22:39 Last Admin: 04/09/24 10:58 Dose: Not Given Documented By: MARSHA Cefazolin Sodium (Ancef 2000mg) 2,000 mg in 15 mls @ 3.75 mls/min IV PREOP [facility]; Protocol Stop: 04/09/24 18:00 Last Admin: 04/09/24 11:27 Dose: 3.75 mls/min Documented By: [id number] Lactated Ringer's (Lr) 1,000 mls @ 150 mls/hr IV .Q6H40M SONIYA Stop: 05/09/24 15:56 Last Admin: 04/10/24 05:09 Dose: Not Given Documented By: Infusion: 04/10/24 05:09 Dose: Infused Documented By: Admin: 04/10/24 01:58 Dose: 150 mls/hr Documented By: Infusion: 04/10/24 01:58 Dose: Infused Documented By: Admin: 04/09/24 19:31 Dose: 150 mls/hr Documented By: Infusion: 04/09/24 19:31 Dose: Infused Documented By: Admin: 04/09/24 16:52 Dose: 150 mls/hr Documented By: LUCRETIA Cefazolin Sodium (Ancef 2000mg) 2,000 mg in 15 mls @ 3.75 mls/min IV Q8H [facility]; Protocol Stop: 04/10/24 04:03 Last Admin: 04/10/24 04:20 Dose: 3.75 mls/min Documented By: Admin: 04/09/24 20:12 Dose: 3.75 mls/min Documented By: BRIAN Insulin Aspart (Insulin Aspart Per Unit Charge) 0 units SC ONE ONE Stop: 04/10/24 02:01 Last Admin: 04/10/24 02:01 Dose: Not Given Documented By: BRIAN Co-signed By: USAMA Insulin Glargine (Lantus Per Unit Charge) 18 units SC ONE ONE Stop: 04/09/24 17:01 Last Admin: 04/09/24 18:08 Dose: Not Given Documented By: LUCRETIA Ketorolac Tromethamine (Ketorolac 30 Mg/Ml Vial) 30 mg IV Q6 SONIYA Stop: 04/10/24 12:01 Last Admin: 04/10/24 12:29 Dose: 30 mg Documented By: Admin: 04/10/24 05:34 Dose: 30 mg Documented By: Admin: 04/09/24 23:50 Dose: 30 mg Documented By: Admin: 04/09/24 17:50 Dose: 30 mg Documented By: APPLE Miscellaneous ( Floseal Hemostatic Matrix 10ml) 30 ml TOP ONCE ONE Stop: 04/09/24 12:40 Last Admin: 04/09/24 13:00 Dose: 22 ml Documented By: DALILA Non-Formulary Medication (Aspirin Bc Brand) 845 mg PO QID SONIYA Stop: 05/09/24 16:59 Last Admin: 04/09/24 18:07 Dose: Not Given Documented By: LUCRETIA (3) Hypertension Hypertension type: unspecified Qualified Code(s): I10 - Essential (primary) hypertension (4) Diabetes mellitus, type 2 Diabetes mellitus complication status: without complication Diabetes mellitus technician terminal and repeater insulin use: without [facility] use Qualified Code(s): E11.9 - Type 2 diabetes mellitus without complications (5) Brain tumor (benign) Benign neoplasm of brain location: unspecified brain region Qualified Code(s): D33.2 - Benign neoplasm of brain, unspecified
[2024-04-11] MEDS: CYANOCOBALAMIN (B-12) 500 MCG TABLET PO SCH (13:07)
[2024-04-12 07:31] VITALS: TEMP 97.9
[2024-04-12 07:56] LABS: Hematocrit (blood only) 30.1 % (42.0-52.0); Hemoglobin 9.8 g/dl (14.0-18.0); Mean Corpuscular Hgb Conc 32.6 g/dL (32.0-36.0); Mean Corpuscular Volume 89.1 fL (80.0-100.0); Platelet Count 242 K/uL (130-400); RDW Coefficient of Variation 13.1 % (11.5-14.5); RDW Standard Deviation 42.5 fL (36.4-46.3); Red Blood Count 3.38 M/uL (4.70-6.10); White Blood Count 9.72 K/ul (4.8-10.8)
--- NOTE | 2024-04-12 08:21 | Discharge Summary ---
Date of Service April 12, 2024 Admission HPI Per Admitting Provider This is a 59-year-old male who presents with chronic persistent back and leg pain and failing since course of nonoperative care is here for surgical invention. Principal Diagnosis Lumbar spinal stenosis with neurogenic claudication Discharge Data Allergies Allergy/AdvReac Type Severity Reaction Status Date / Time acetaminophen AdvReac Mild GI upset Verified 04/09/24 10:29 codeine AdvReac Mild N/V Verified 04/09/24 10:29 oxycodone AdvReac Mild N/V Verified 04/09/24 10:29 lisinopril AdvReac Unknown Cough Verified 04/09/24 10:29 Consultations 04/09/24 15:57 Consult Hospitalist Routine Procedures Performed Operation Date: 04/09/24 11:25 Actual Procedures p L1-L2 Decompression, T12-L4 Fusion, Spinal Cord Monitoring(Not Applicable) - Delano Davis DO s L2-L4 Hardware Removal(Not Applicable) - Delano Davis DO Ordered Studies 04/09/24 11:25 FL lumbar spine 2-3V Routine Hospital Course (1) Neurogenic claudication due to lumbar spinal stenosis: Patient underwent thoracolumbar decompression fusion tolerated this well was taken to orthopedic for postoperative. Postop he progressed appropriately marked improvement in his back and leg symptoms. ALLAN drain decreasing. Extra strength testing. Pain well-controlled. Septic discharge home. Discharge orders instructions from chart for further review. Total Time Total Time Spent Total Time Spent (In Minutes): 20 minutes Discharge Plan Discharge Items Patient Disposition: Home - Self-Care Reason For Visit: Lumbar Degenerative Disc Disease, Retrolisthesis, Discharge Diagnosis: Lumbar spinal stenosis with neurogenic claudication Activity: As commented below Non-emergency contact: Primary Care Provider Call non-emergency contact if: you have any medication questions Follow-up/Referrals: Eric Cee MD [Primary Care Provider] - Diet: Regular Addtl Attending Provider Instructions: ACTIVITY RECOMMENDATIONS: SELF CARE INSTRUCTIONS AFTER THORACIC/LUMBAR FUSIONS 1. You may walk to your tolerance. It is good exercise for your legs and back. Expect some back and intermittent leg aches and pains. 2. You may perform "counter-top" level activities (make a sandwich, luz with a project, etc.). 3. No bending or lifting of more than 10 pounds or back twisting of any nature (roll like a log when turning in bed). 4. You may ride in a car for 20-30 minutes at a time. No driving until after your first visit with your doctor. 5. Frequent changes of position and restricting sitting to 30 minutes at a time will help limit the amount of back spasms and stiffness you may experience. 6. You may discontinue the use of ambulatory aids (cane, crutches, etc.) once your strength and confidence allow. 7. 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 Do not take a tub bath, sit in a hot tub or go into a swimming pool until after your first recheck in the office. SPECIAL CARE INSTRUCTIONS: VERY IMPORTANT TO READ AND REVIEW A. Your surgical incision has been closed with a cosmetic suture under the skin that will dissolve in about 6 weeks. In 14 days, you can use a pair of clean scissors and cut the suture that is left outside of the skin at the ends of your incision. 1. The small skin tapes can be removed 7 days after surgery if they have not fallen off by that point. 2. You may keep the wound open to air as much as possible to promote healing after post-op day number 5 unless told otherwise by your doctor. 3. If you think the wound looks like it is becoming infected (redness or worsening drainage) and/or you are experiencing fever, chill or worsening back pain and muscle spasms, contact the office so that we may evaluate you as soon as possible. B. Complications are uncommon, but please contact us if you have any signs or symptoms of: 1. wound infection (fever higher than 102.5 degrees F, redness, separation of wound, drainage, or increasing pain from the incision) 2. blood clots in legs (pain, swelling, redness and warmth in legs) 3. urinary tract infection (fever higher than 102.5 degrees F, burning upon urination or increased frequency of urination) 4. nerve problems (inability to walk on your toes or heels, numbness, loss of bowel or bladder control) 5. any other symptoms that concern you C. Please call the office at if you have any concerns or questions about your operation or recovery. D. No smoking! Smoking drastically decreases the chance of a solid fusion. E. Do not take any anti-inflammatory medications (Indocin, Advil, Motrin, Aspirin, Naprosyn, etc.) as these may inhibit the chance of a solid fusion. Tylenol is okay to take for pain. MANAGING PAIN AFTER SPINAL SURGERY 1. Narcotic medication is intended for short-term use and will be provided for surgical pain. Surgical pain usually lasts for a period of 4-6 weeks. Narcotic medication includes Percocet, Vicodin, Darvocet, Tylenol #3 or Lortab. 2. Longer-term pain is more appropriately treated with non-narcotic medication such as Tylenol ES. 3. Muscle spasm is not appropriately treated with narcotics. Muscle relaxers such as Soma, Flexeril or Skelaxin can be used along with Tylenol ES. 4. Remember that we all live with some "aches and pains". This is not unusual or uncommon after an injury or as we get older. a. Back pain is expected and may include muscle spasms for 4 to 6 weeks after surgery. The pain should gradually improve. If the pain worsens for no apparent reason, please contact the office. b. Intermittent leg pain may also be experienced and should not be concerned about unless it worsens for no apparent reason. If so, please contact the office. 5. We will provide appropriate medication within the normal guidelines of their prescribed use. We will also be very cautious and aware of potential abuse and extended duration of patients' medication needs. a. Pain medications are for your comfort and to assist with sleep and rest so that the tissue can heal. They are not provided in order to return to normal activity and should not be used through the day. To do so or worsening pain at night can result from ongoing tissue damage and development of tolerance to the prescribed medicine. 6. Please allow 2-3 days to process refills. Prescriptions will not be mailed but must be picked up at the office. FOLLOW UP VISIT: Keep your scheduled follow-up appointment. Any questions, please call the office at . Pending Studies at Discharge: No Stand-Alone Forms: My [employer], Smoking Cessation Medications and DC Order Prescriptions: New tramadol 50 mg tablet 50 mg PO Q6H PRN (Reason: pain, moderate) Qty: 30 0RF oxycodone 5 mg tablet 5 mg PO Q6H PRN (Reason: pain) Qty: 30 0RF Continued lorazepam 0.5 mg tablet 0.5 mg PO HS PRN (Reason: sleep) Aspirin Bc Brand 845 mg PO QID Patient Comments: TAKES FOR PAIN>PT SAID IT IS A BC BRAND IN A PACKET -Stopped taking 03/26/24 per surgeon's order losartan 50 mg Tablet 50 mg PO QPM allopurinol 300 mg Tablet 300 mg PO QPM metformin 500 mg Tablet 500 mg PO QPM simvastatin 10 mg Tablet 10 mg PO PM Discharge Orders: Discharge Order (Routine); Ordered 04/12/24 Ordered By: Delano Davis Admission Data Admit Date/Time: 04/09/24 13:26 Attending Provider: Delano Davis Admit Provider: Delano Davis Primary Care Provider: Eric Cee Other Providers: Tiffany Hazel; [facility]; Juan Cid
[2024-04-12 08:24] LABS: BUN Creatinine Ratio 21.5 (10-20); Calcium 8.7 mg/dl (8.6-10.3); Creatinine Clr Calc Pharmacy 158.2 ml/min; Est GFR (African American) 125.2 ml/min; Phosphorus 3.8 mg/dl (2.5-4.9); Potassium 3.8 mmol/L (3.5-5.1)
--- NOTE | 2024-04-12 11:30 | Hospitalist Progress Note ---
<Statement entered by Juan Cid, DO - 04/12/24 14:41> I have seen and examined the patient and have discussed the case with the provider above. I have reviewed the advanced practitioner's documentation, and I agree with, and take responsibility for that plan of care. 10 minutes spent at bedside with patient and . Doing well. Anticipating discharge soon. Discussed how diabetes managed in the hospital Date of Service April 12, 2024 Assessment & Plan (1) Neurogenic claudication due to lumbar spinal stenosis: (2) Acute blood loss anemia: Plan: POD#3 s/p L1-L2 decompression, T12-L4 fusion & L2-L4 hardware removal with Dr. Davis on 04/09. EBL: 250 mL & Pre-Op Hgb 15.0 Hgb downtrended to 10.2 on 04/11-> 9.8 on 04/12 Anemia work-up revealed iron and B12 deficiencies; likely secondary to surgeries started on B12 supplement Per ortho for pain control, wound care, anticoagulation and activities. Continue incentive spirometry, PT/OT when appropriate as per ortho team. If the ALLAN drain is not removed prior to discharge, it will be removed in the outpatient setting by ortho spine. (3) Hypertension: Plan: BP has remained stable post-operatively, continue losartan. (4) Diabetes mellitus, type 2: Plan: Recent Hgb A1c 6.0 per chart review; [employer] metformin held, continue SSI regimen while admitted. (5) Brain tumor (benign): Plan: History of meningioma, [facility] 11/2023 with no changes in frontal mass, Q2year scans. We will continue to follow the patient with you during their hospital stay. You can reach a member of the [facility] Hospitalist Team 28/03 via the [facility] in [employer] [facility]. Disposition: DVT Prophylaxis: SCDs/TEDs; per primary team Code Status: FULL CODE PCP: Eric Cee MD Planned DC after being on med surg unit post op Patient seen in collaboration with Dr. Cid. Please see addendum. I spent a total of 31 minutes coordinating, documenting, and providing care for this patient excluding time spent in the performance of separately billed services. This included personally reviewing all current laboratories and imaging studies, medical reconciliation, outpatient chart review and discussion with specialists. This chart was completed in part utilizing Speech Voice Recognition Software. Grammatical errors, random word insertions, pronoun errors, and incomplete sentences are an occasional consequence of this system due to software limitations, ambient noise, and hardware issues. Any formal questions or concerns about the content, text, or information contained within the body of this dictation should be directly addressed to the provider for clarification. Admission and Anticipated Discharge Date Admission Date: April 09, 2024 Subjective Patient seen and examined at bedside and he was lying flat in no apparent distress Patient reports good pain control, states he feels pretty well overall. He was already up and moving without challenges in the hallway with his Ortho Spine Dr. Davis saw pt today; likely DC today this afternoon. His ALLAN drain output has been putting out some increased input; decreasing since surgery day; 155 mL over past 24 hours passing flatulence; no BM yet; voiding without complication denies BLOUNT, dizziness, chest pain, SOB, N/V/D. Tolerating diet well. Review of Systems Review of Systems: At least ten systems reviewed and negative, except as noted in the HPI. Physical Exam Physical Exam: Neuro: AAOx4, PERRLA, no aphagia, memory changes, CNII-XII grossly intact HEENT: head normocephalic, moist mucus membranes CV: S1/S2, (-) M/G/R, (-) edema, cap refill < 3 seconds Resp: Lungs CTA in all gibbs. On RA GI: Abdomen S/NT/ND, Ax4 bowel sounds, (-) CVA tenderness Musculoskeletal: 5/5 B/L UE strength, 5/5 B/L LE strength. No gait disturbance Skin: (-) rashes , (-) erythema. (+) lumbar dressing in place; noted bloody drainage onto dressing; marked yesterday and has not exceeded marking Psych: euthymic mood Results & Data Results & Data Vital Signs (Past 12 Hours) Vital Signs Temp Pulse Resp BP Pulse Ox O2 Del Method 04/12/24 07:29 36.6 C 76 16 127/77 97 Room Air 04/12/24 07:15 Room Air (3) Hypertension Hypertension type: unspecified Qualified Code(s): I10 - Essential (primary) hypertension (4) Diabetes mellitus, type 2 Diabetes mellitus complication status: without complication Diabetes mellitus technician terminal and repeater insulin use: without residential use Qualified Code(s): E11.9 - Type 2 diabetes mellitus without complications (5) Brain tumor (benign) Benign neoplasm of brain location: unspecified brain region Qualified Code(s): D33.2 - Benign neoplasm of brain, unspecified
[2024-04-12 11:46] VITALS: BP 122/71; PULSE 82; RESP 14; O2SAT 93
== END 2024-04-12 14:25 | disposition home or self-care (01) | DRG 454 ==
LOC: ASU 10:04 → 3N 13:26